=== PATIENT | female | born 1940 | race Caucasian/White ===

== ENCOUNTER 2017-07-28 07:02 | Emergency (ER) | payer MEDICARE, OTHER ==
[~2017-07-28] VITALS: Ht 170.2 cm; Wt 122.5 kg
[~2017-07-28 07:02] MED LIST: AMBIEN5 MG PO; ARICEPT10 MG PO; ARICEPT5 MG PO; ATORVASTATIN CA20 MG PO; BP MED; BRIMONIDINE TART5 M1 OU; GABAPENTIN300 MG PO; GLIPIZIDE XL10 MG PO; GLIPIZIDE5 MG PO; HYDROCHLOROTHIA25 MG PO; JANUVIA100 MG PO; K-PHOS NEUTRAL T1 EA PO; L-METHYLFOLATE15 M1 PO; LASIX80 MG PO; METOPROLOL SUC100 MG PO; MOBIC7.5 MG PO; NORCO 5-325 TA1 EACH PO; NYSTATIN15 G2 TOP; OMEPRAZOLE40 MG PO; POTASSIUM CHLO10 MEQ PO; PRILOSEC20 MG PO; PRILOSEC40 MG PO; PROZAC40 MG PO; RANITIDINE HCL150 MG PO; SERTRALINE HCL100 MG PO; SIMVASTATIN20 MG PO; SIMVASTATIN80 MG PO; SYNTHROID88 MCG PO; TRAVATAN Z5 ML OU; TRAZODONE HCL100 MG PO; TRAZODONE HCL50 MG PO; VITAMIN D250000 UNIT PO; ZIPRASIDONE HCL80 MG PO; ZOLPIDEM TARTRA10 MG PO
== END 2017-07-28 09:08 | disposition home or self-care (01) ==
LOC: ED 07:02
DX: S00.03XA Contusion of scalp, initial encounter (principal); S80.12XA Contusion of left lower leg, initial encounter; F03.90 Unspecified dementia, unspecified severity, without behavioral disturbance, psychotic disturbance, mood disturbance, and anxiety; E78.5 Hyperlipidemia, unspecified; K21.9 Gastro-esophageal reflux disease without esophagitis; I10 Essential (primary) hypertension; E11.9 Type 2 diabetes mellitus without complications; Z86.73 Personal history of transient ischemic attack (TIA), and cerebral infarction without residual deficits; Z87.891 Personal history of nicotine dependence; Z88.0 Allergy status to penicillin; Z91.030 Bee allergy status; Z88.8 Allergy status to other drugs, medicaments and biological substances; Z79.4 Long term (current) use of insulin; Z79.899 Other long term (current) drug therapy; W18.30XA Fall on same level, unspecified, initial encounter; Y92.89 Other specified places as the place of occurrence of the external cause
CPT/HCPCS: 70450; 73590; 80048; 81001; 85025; 85610; 85730; 96360; 99284; J7030

== ENCOUNTER 2017-08-01 11:26 | Emergency (ER) | payer MEDICARE, OTHER ==
[~2017-08-01] VITALS: Ht 170.2 cm; Wt 270.0 kg
[2017-08-01] MEDS ORDERED: JANUVIA100 MG PO (11:44)
[2017-08-01] MEDS ORDERED: ZESTORETIC 20-1 EAC1 PO (11:46)
[2017-08-01] MEDS ORDERED: GLUCOPHAGE XR500 MG PO (11:46)
[2017-08-01] MEDS ORDERED: LOPERAMIDE2 MG PO ×2 (11:52)
== END 2017-08-01 12:07 | disposition home or self-care (01) ==
LOC: ED 11:26
DX: S80.12XD Contusion of left lower leg, subsequent encounter (principal); E11.9 Type 2 diabetes mellitus without complications; I11.0 Hypertensive heart disease with heart failure; I50.9 Heart failure, unspecified; F03.90 Unspecified dementia, unspecified severity, without behavioral disturbance, psychotic disturbance, mood disturbance, and anxiety; K21.9 Gastro-esophageal reflux disease without esophagitis; E78.5 Hyperlipidemia, unspecified; Z88.0 Allergy status to penicillin; Z91.030 Bee allergy status; Z88.8 Allergy status to other drugs, medicaments and biological substances; Z88.4 Allergy status to anesthetic agent; Z79.899 Other long term (current) drug therapy; X58.XXXD Exposure to other specified factors, subsequent encounter
CPT/HCPCS: 99283

== ENCOUNTER 2017-08-04 13:43 | Emergency (ER) | payer MEDICARE, OTHER ==
[~2017-08-04] VITALS: Ht 170.2 cm; Wt 249.5 kg
[~2017-08-04 13:43] MED LIST changes: +GLUCOPHAGE XR500 MG PO; +LOPERAMIDE2 MG PO; +ZESTORETIC 20-1 EAC1 PO
[2017-08-05] MEDS ORDERED: ASPIRIN81 MG PO (15:30)
[2017-08-05] MEDS ORDERED: FIBER LAXATIV0.52 GM PO (15:30)
[2017-08-05] MEDS ORDERED: METHYLCOBALAMIN1 GM PO (15:35)
[2017-08-05] MEDS ORDERED: SYSTANE BALANCE10 ML OD (15:37)
[2017-08-05] MEDS ORDERED: MAALOX ADVANCE355 ML PO (15:38)
[2017-08-05] MEDS ORDERED: MAGNESIUM CITR296 ML PO (15:39)
[2017-08-05] MEDS ORDERED: NEURONTIN300 MG PO (15:40)
[2017-08-05] MEDS ORDERED: VITAMIN B COMP1 EAC1 PO (15:45)
[2017-08-05] MEDS ORDERED: [UNRECOGNIZED DRUG - OTHER] (15:47)
[2017-08-05] MEDS ORDERED: TYLENOL325 MG PO (15:48)
[2017-08-05] MEDS ORDERED: IBUPROFEN200 MG PO (15:49)
[2017-08-05] MEDS ORDERED: MILK OF MA400 MG/5 M PO (15:50)
[2017-08-05] MEDS ORDERED: REFRESH LIQUIGE15 ML OU (15:51)
== END 2017-08-04 16:52 | disposition home or self-care (01) ==
LOC: ED 13:43
DX: R13.10 Dysphagia, unspecified (principal); F03.90 Unspecified dementia, unspecified severity, without behavioral disturbance, psychotic disturbance, mood disturbance, and anxiety; I10 Essential (primary) hypertension; E11.9 Type 2 diabetes mellitus without complications; K31.9 Disease of stomach and duodenum, unspecified; E78.5 Hyperlipidemia, unspecified; Z87.891 Personal history of nicotine dependence; Z88.0 Allergy status to penicillin; Z91.030 Bee allergy status; Z88.6 Allergy status to analgesic agent; Z88.8 Allergy status to other drugs, medicaments and biological substances; Z79.899 Other long term (current) drug therapy
CPT/HCPCS: 71046; 99283

== ENCOUNTER 2017-08-04 18:15 | Inpatient (IN) | payer MEDICARE, OTHER ==
[~2017-08-04] VITALS: Ht 170.2 cm; Wt 105.7 kg
--- NOTE | 2017-08-04 23:14 | NUR ---
2255 - pt arrived to room 108 via stretcher from ED. O2 5L oxymask, R26, does not opens eyes, not responsive . tranfered with max assist and hovermat . IVF patent, F/C patent draining cloudy urine. Pt unable to answer admit questions, will review past admissions and [facility] record for information. Pt to be on droplet isolation, Influensa B+, Lesia lift, turn q2H. heel protectors placed on and pillows under both arms. Tolerated fair
--- NOTE | 2017-08-05 01:15 | NUR ---
MEDS GIVEN PER ORDER. PATIENT ASSESSMENT COMPLETE. PATIENT IS ABLE TO ANSWER QUESTIONS WITH 1-2 WORDS. PATIENT IS ORIENTED TO SELF AND CAN ANSWER QUESTIONS ABOUT WHERE SHE IS LIVING, BUT RESPONCES ARE MINIMAL. CURRENTLY ON 7L OXYMASK, O2 SAT 90%. LUNGS ARE COARSE IN UPPER LOBES AND DIMINISHED IN THE BASES. HOB ELEVATED. ABD IS ROUND, SOFT AND DOES NOT APPEAR TENDER. BOWEL SOUNDS ACTIVE. AYALA IN PLACE. OUTPUT IS CLOWDY. SKIN IS VERY DRY WITH PURPLE YOUNGBLOOD SCATTERED ACROSS THE ARMS. LARGE HEMATOMA ON LEFT LEG, MEASURED AND PICTURES IN CHART. PATIENTS BUTT IS RED BUT BLANCHABLE, ONE AREA THE SIZE OF A QUARTER IS NONBLANCHABLE. PICTURES TAKEN. PATIENT HAS BEEN TURNED TWICE SINCE ARRIVAL, WILL TURN Q2H. ALYVEN DRESSING ON COCCXY AREA. PATIENT IS NPO AT THIS TIME DUE TO CONCERNS OF ASPITATION. SUCTION READY IN THE ROOM. WILL CONTINUE TO MONITOR.
--- NOTE | 2017-08-05 01:44 | NUR ---
MD EDUARDO WAS CALLED IN REGARDS TO CALCIUM GLUCONAT ORDER BECAUSE THERE WAS ONE ORDER THAT WAS D/C. PER MD EDUARDO SHE WANTS THIS MED GIVEN. MED TO BE GIVEN BY MARIA TERESA HERNANDEZ.
--- NOTE | 2017-08-05 02:00 | NUR ---
PATIENT IS DIAPHORETIC AND HAS ORAL TEMP OF 102.8 F. MD CONTACTED. ORDERS FOR TYLENOL SUPPOSITORY RECIEVED, VERIFIED USING READ BACK METHOD.
--- NOTE | 2017-08-05 02:45 | NUR ---
tylenol suppositiory administered. patient tolerated well. repositioned patient.
--- NOTE | 2017-08-05 03:21 | NUR ---
UNABLE TO TAKE BP, PT MOVING ARM. ANSWERS TO NAME, EYES CLOSED, OXYMASK IN PLACE
--- NOTE | 2017-08-05 05:21 | NUR ---
PATIENT ARRIVED TO THE FLOOD AROUND 2330 FROM THE ER. SHE WAS HYPOXIC IN THE ER, 84% ON RA. NOW SHE IS 91% ON 7L OXYMASK. COMMUNICATION WITH PATIENT IS MINIMAL. SHE HAS GENERALIZED EDEMA. LOW URINE OUTPUT, CLOWDY. DIFFICULT TO ASSESS BP. PATIENT HAD TEMP OF 102.8 F, WHICH WAS TREATED WITH TYLENOL AND REDUCED TO 101.2F. AYALA IN PLACE. UNKNOWN LAST BM. DENIES PAIN. LARGE HEMATOMA ON LEFT ALVES. AREA AREA ON COCCYX, ALYVEN IN PLACE. TURN Q2H. HEEL PROTECTORS IN USE. PATIENT WAS RECENTLY MOBIL, BUT AT THIS TIME IS A RECOMMENDED [employer]. NPO AT THIS TIME DUE TO ASPIRATION RISK.
--- NOTE | 2017-08-05 05:57 | NUR ---
PATIENT IS FREQUENTLY DROSWEY BUT MORE ALERT THIS MORNING. ANSWERING QUESTIONS. SHE KNOWS WHERE SHE LIVES, BUT DID NOT REMEMBER BEING IN THE HOSPITAL. STATES THAT SHE FEELS "HORRIBLE" THIS MORNING. SHE IS ASKING FOR WATER. MOUTH SWABS PROVIDED. STILL UNABLE TO FIND A MANUAL BP ON THIS PATIENT. URINE OUTPUT WAS VERY LOW, 10ML FOR LAST 4 HOURS. PATIENT'S IV FLUIDS ARE INFUSING, SITE WNL. STARTED IV ABX. REPOSITIONED PATIENT.
--- NOTE | 2017-08-05 06:03 | NUR ---
MD CONTACTED ABOUT POOR OUTPUT AND ISSUES WITH OBTAINING A MANUAL BP. NO NEW ORDERS AND MD AGREED THAT IT WOULD BE OKAY FOR PATIENT TO HAVE BEDSIDE SWALLOW EVAL THIS MORNING.
--- NOTE | 2017-08-05 09:15 | NUR ---
PT AWAKE AND ANSWERING QUESTIONS. SISTERS AT BEDSIDE. ANSWERS IN SHORT SENTENCES. ROLLED TO OTHER SIDE WITH PILLOWS UNDER SIDES.
--- NOTE | 2017-08-05 11:04 | NUR ---
TOOK SEVERAL BP IN DIFFERENT LOCATIONS. MANUAL ON WRIST WAS 165. PT TOLERATED WELL.
--- NOTE | 2017-08-05 11:27 | NUR ---
PT HAS VISITOR IN ROOM FROM [facility].
--- NOTE | 2017-08-05 12:31 | NUR ---
DID BEDSIDE SWALLOW EVAL. PT PASSED EASILY. DR HUDSON ADVANCED DIET AND WILL ORDER LUNCH. GIVEN SIPS OF WATER. UO LOW, STARTED BOLUS.
--- NOTE | 2017-08-05 14:47 | NUR ---
O2 SENSOR REPLACED. PT RESTING COMFORTABLY IN BED. SPEECH HAS IMPROVED. PT STATES NORMALLY WEARS UPPER DENTURES, BUT DOES NOT HAVE THEM WITH HER. STILL NEEDS TO BE REORIENTED TO PLACE, SITUATION, DATE, AND TIME. DENIES PAIN AT THIS TIME.
[2017-08-05] MEDS ORDERED: ASPIRIN81 MG PO (15:30)
[2017-08-05] MEDS ORDERED: FIBER LAXATIV0.52 GM PO (15:30)
[2017-08-05] MEDS ORDERED: METHYLCOBALAMIN1 GM PO (15:35)
[2017-08-05] MEDS ORDERED: SYSTANE BALANCE10 ML OD (15:37)
[2017-08-05] MEDS ORDERED: MAALOX ADVANCE355 ML PO (15:38)
[2017-08-05] MEDS ORDERED: MAGNESIUM CITR296 ML PO (15:39)
[2017-08-05] MEDS ORDERED: NEURONTIN300 MG PO (15:40)
[2017-08-05] MEDS ORDERED: VITAMIN B COMP1 EAC1 PO (15:45)
[2017-08-05] MEDS ORDERED: [UNRECOGNIZED DRUG - OTHER] (15:47)
[2017-08-05] MEDS ORDERED: TYLENOL325 MG PO (15:48)
[2017-08-05] MEDS ORDERED: IBUPROFEN200 MG PO (15:49)
[2017-08-05] MEDS ORDERED: MILK OF MA400 MG/5 M PO (15:50)
[2017-08-05] MEDS ORDERED: REFRESH LIQUIGE15 ML OU (15:51)
--- NOTE | 2017-08-05 15:55 | NUR ---
MED REC COMPLETE
--- NOTE | 2017-08-05 16:47 | NUR ---
PT SISTERS HERE TO SEE PT AND POSSIBLY CHANGE HER POLST. DR DENT SAID HE WOULD ADDRESS IT TOMORROW AND THAT THEIR WISHES ARE ALREADY DOCUMENTED FOR THIS STAY. SISTERS SATISFIED WITH THAT LONG SHE IS GETTING TREATMENT AND WE WONT STOP. REITERATED THAT SHE IS GETTING AB AND TREATMENT.
--- NOTE | 2017-08-05 17:51 | NUR ---
JENNY MOREL WITNESSED INSULIN.
--- NOTE | 2017-08-05 18:59 | NUR ---
PT ARRIVED TO ROOM 128 VIA BED FROM MED/SURG. VITAL SIGNS TAKEN. URINE SENT FOR NEW LABS ORDERED BY DR. DENT.
--- NOTE | 2017-08-05 20:18 | NUR ---
IN TO ASSESS PT AT 1945. PT DENIES PAIN. DR DENT UPDATED RE: U/O, VS NOW. CLARIFIED TAMIFLU ORDER WITH PHARMACY AND DR DENT. NEW ORDERS RECEIVED.
--- NOTE | 2017-08-05 20:37 | NUR ---
ENCOURAGED PT TO COUGH AND DEEP BREATHE. SPO2 90-91% WHEN ASLEEP AND MOUTH BREATHING. INCREASED O2 TO 4L NC.
--- NOTE | 2017-08-05 21:11 | NUR ---
AYALA [facility] COMPLETED. TAMIFLU GIVEN DISSOLVED IN APPLESAUCE, SWALLOWED WELL. REPOSITIONED PT TO R SIDE WITH PILLOWS. TITRATED 02 TO 8L OXYMASK FOR LAYING ON SIDE. SPO2 86% ON 4L NC, NOW 92%. PT WITH LARGE UPPER BODY HABITUS. SLEEP APNEA AT TIMES WITH MOUTH BREATHING.
--- NOTE | 2017-08-05 22:59 | NUR ---
PT REPOSITIONED SUPINE. PULSE OX PLACED ON R TOE. O2 TITRATED TO 4L VIA OXYMASK. SPO2 97%.
--- NOTE | 2017-08-06 00:57 | NUR ---
PT REPOSITIONED WITH PILLOW UNDER R HIP. PILLOWS UNDER LE WITH HEEL PROTECTORS ON. PT DENIES PAIN. UPPER EXPIRATORY WHEEZE MORE PROMINENT.
--- NOTE | 2017-08-06 04:05 | NUR ---
DR DENT UPDATED ON PT HR, BP, U/O. IVF DECREASED TO 100ML/HR. PT GIVEN 25MG METOPROLOL PO AND 650MG TYLENOL FOR TEMP 100.6 AND GRIMACING WITH MOVEMENT. PILLOWS PLACE UNDER PT HIPS.
--- NOTE | 2017-08-06 07:33 | NUR ---
Patient's current SCr = 2.17. Renal dosing of Tamiflu = 30mg PO daily. Tamiflu 75mg given as first dose due to lack of availability of 30mg cap after hours. Patient's baseline SCr is close to 1.0. Pharmacy will monitor patient for renal function improvement and redose if necessary as indicated.
--- NOTE | 2017-08-06 08:10 | NUR ---
PT GIVEN PUDDING THICK WATER WITH A STRAW PT DID WELL WITH THIS, THEN PT BEGAN TO COUGH AND CHOKE ON THE THICKEN LIQUIDS. PT REPOSITIONED AND PLACED IN A HIGH ELISE POSITION AFTER THIS. PT HAS GOOD URINE OUTPUT THIS PAST HOUR. SIDE RAILS X 4, AND PT IS ACROSS FROM NURSES STATION.
--- NOTE | 2017-08-06 11:08 | NUR ---
PHYSICAL THERAPY HERE TO HELP ASSIT WITH PT TO GET OUT OF BED. PT IS NOT ABLE TO ASSIST WITH MOVEMENT TO GET OUT OF BED. SHE IS UNABLE TO HOLD SELF UP WHEIL SITTING AT THE EDGE OF THE BED. THREE PERSON MAX ASSISTANCE NEEDED. PT BACK TO BED AND PLACED IN CEILING LIFT SHEET. PT TO THE CHAIR WITH CEILING LIFT. PT IS UNABLE TO SIT IN CHAIR WITHOUT LEANING TO THE RIGHT SIDE. SO PT WAS PLACED IN A RECLINING POSITION. WHEN PT IS IN THIS POSITION SHE IS ABLE TO SIT IN THE CHAIR. PILLOWS UNDER RIGHT SIDE TO HELP KEEP PT IN THE CENTER OF THE CHAIR.
--- NOTE | 2017-08-06 11:12 | NUR ---
NEW IV SITE STARTED IN LEFT ARM DUE TO THE ONE ABOVE IN THE LAFT ARM IS IN THE AC AREA AND OCCULDIES AT TIMES.
--- NOTE | 2017-08-06 11:14 | NUR ---
PT REMAINS NPO AT THIS TIME, BUT WET SPONGE GIVEN TO MOISTEN MOUTH.
--- NOTE | 2017-08-06 11:14 | NUR ---
EXPLAINED TO PT THAT WE NEEDA SPUTUM SAMPLE. ASKED PT IF SHE COULD PROVIDE USE WITH ONE "NO, I SWOLLOW IT" EXPLAINED AGAIN THAT WE NEED A SAMPLE "NO"
--- NOTE | 2017-08-06 12:01 | NUR ---
PT MEDICATED WITH 650MG TYLENOL PO CRUSHED IN PUDDING. PT DID WIELL WITH THIS AND DID NOT CHOKE ON IT.
--- NOTE | 2017-08-06 12:08 | NUR ---
DR DENT NOTIFIED OF INCREASED TEMP AT THIS TIME AND NO NEW ORDERS.
--- NOTE | 2017-08-06 13:34 | NUR ---
PT BACK TO BED AT THIS TIME WITH CEILING LIFT. PT PRECIOUS-FAIR, PT PLACED ON RIGHT SIDE. PT LEFT LOWER LEG HAS STARTED TO OZZE DRAINAGE NOTED. IT HAS A VERY STRONG ODOR.
--- NOTE | 2017-08-06 14:50 | NUR ---
PT LEFT LOWER LEG IS DRAINING, AND HAS STRONG ODOR COMING FROM IT. SENT SAMPLES TO THE LAB FOR MICRO. PT ABLE TO MOVE ABOUT THE BED THIS AFTERNOON. PER DR DENT DRESSING WAS TO BE PALCED. THEREFORE ABD AND GAUZE PLACED ON THE WOUND.
--- NOTE | 2017-08-06 15:40 | NUR ---
REPORT CALLED TO BERTA MOREL ALL QUESTIONS, PT WILL BE TRANSFERED VIA BED TO ROOM 110. PT PLACED IN MASK FOR [place].
--- NOTE | 2017-08-06 15:43 | NUR ---
RECIEVED REPORT FROM JOELLE CCU RN VIA TELEPHONE.
[2017-08-06] MEDS ORDERED: VITAMIN B-125000 MCG SL (16:03)
--- NOTE | 2017-08-06 16:08 | NUR ---
PT TO FLOOR, TO ROOM 110 ACCOMPANIED BY JOHANNY, CCU RN AND JOELLE CCU RN. DENIES PAIN. REPORTS FEELING SHORT OF BREATH. RESPIRATORY RATE 22, OXYGEN SATURATION LEVEL 98% ON 2L O2 VIA NC. PT ALERT, ORIENTED TO SELF, TO FAMILY, TO YEAR, TO WHO THE PRESIDENT IS, AND THAT SHE IS IN THE HOSPITAL IN [place], BUT CALLED THE [facility], AND STATED THAT SHE DID NOT KNOW WHAT MONTH OR DAY IT IS.
--- NOTE | 2017-08-06 16:40 | NUR ---
PT TRANSFERED FROM BED TO RECLINER USING 2 PERSON ASSIST WITH SYDNEY LIFT. ASSISTED TO POSITION FOR COMFORT, IS ON 2 PILLOWS TO FLOAT, HAS A PILLOW UNDER LEGS, AND A PILLOW UNDER RIGHT ELBOW, PT LEANS SLIGHTLY TO THE RIGHT WHEN SEATED.
--- NOTE | 2017-08-06 17:40 | NUR ---
PT SITTING UP IN RECLINER. GAVE PT SCHEDULED HOME MEDICATIONS. PT DENIED PAIN, DENIED NEEDS. PROVIDED EDUCATION REGARDING CALL LIGHT USE, PT VERBALIZED UNDERSTANDING.
--- NOTE | 2017-08-06 17:48 | NUR ---
PT TO FLOOR FROM CCU THIS AFTERNOON. PT UNABLE TO MOVE SELF TO TURN WITHOUT ASSISTANCE, REQUIRES 1-2 PERSON ASSIST TO TURN IN BED, AND REQUIRES SYDNEY LIFT TRANSFER OUT OF BED TO CHAIR. PT UP IN RECLINER, AND IS TOLERATING WELL. ON 2L O2 VIA NC, LUNGS COARSE, WHEEZES, DIM IN BASES. PT SLIGHTLY DROWSY, ORIENTED TO SELF, FAMILY, YEAR, CURRENT PRESIDENT. DISORIENTED TO NAME OF PLACE SHE IS AT, KNOWS SHE IS IN HOSPITAL. ALSO DISORIENTED TO DAY AND MONTH. DRESSING TO LEFT LOWER LEG C/D/I. BLE ELEVATED ON PILLOW, AND RECLINER ELEVATED. PT NPO. PER REPORT FROM MARIA TERESA LAI, PT ASPIRATED ON NECTAR THICK LIQUIDS YESTERDAY. HAS ORDER FOR SPEECH THERAPY. AYALA CATHETER INTACT, DRAINING QUANTITY SUFFICIENT CLEAR YELLOW URINE.
--- NOTE | 2017-08-06 20:00 | NUR ---
PT UP IN CHAIR, O2 2L NC, CALM, NO REQUESTS, NO RESP DISTRESS, LEGS ELEVATED
--- NOTE | 2017-08-06 22:38 | NUR ---
PT TRANSFERRED FROM CHAIR TO BED USING SYDNEY LIFT, PROCEDURE EXPLAINED, PT TOLERATED WELL, BACK TO BED, HOB 45o, O2 2L NC, lungs with exp wheezes and dim at bases, shallow breathing present, pt unable to do dcb due to decreased cognition, karen care done, f/c care done. generalized edema nd multiple bruising in different stages of healing in arms, legs, buttocks area present, not ope, dressing left lower leg present, covered, 2+ EDEMA L LEG AND 3+ RIGHT LEG, HEEL PROTECTORS INPLACE. PT TOOK MEDS CRUSHED, MIXED WITH PUDING AND SIPS OF WATER, TOLERATED WELL, NO COUGH PRESENT AT THIS TIME.SPUTUM SAMPLE STILL NEEDED, PT HAS NO COUGH AT THIS TIME. REPORT GIVEN TO SALVATORE MOREL
--- NOTE | 2017-08-06 22:59 | NUR ---
T 101.1, TYLENOL 650MG PO GIVEN BY MARIA EUGENIA MOREL. PT REPOSITIONED. PT TURNED O2 OFF, DESATTED TO 83%, RESP 24, NO CYANOSIS PRESENT. O2 2L NC BACK ON, SATS BACK TO 93%, RESP 24.
--- NOTE | 2017-08-06 23:06 | NUR ---
PATIENT REPOSITIONED ON LEFT SIDE FOR COMFORT. PRN TYLENOL GIVEN FOR TEMPERATURE OF 100.1. PATIENT REPORTS THAT SHE NOW FEELS COMFORTABLE AND STATES "I JUST WANT SOME WATER." EDUCATED PATIENT ABOUT PLAN OF CARE AND NPO STATUS. OFFERED PATIENT MOUTH SWAB FOR COMFORT. DENIES FURTHER NEEDS. CALL LIGHT WITHIN REACH.
--- NOTE | 2017-08-07 | NUR ---
PATIENT RESTING IN BED, BREATHING IS EVEN AND UNLABORED. O2 SATURATION WAS 86% AFTER PATIENT TOOK NC OFF. AFTER PUTTING NC BACK ON, O2 SATURATION IS NOW 92%. PATIENT DENIES NEEDS. CALL LIGHT WITHIN REACH.
--- NOTE | 2017-08-07 00:43 | NUR ---
PATIENT REPOSITIONED FOR COMFORT. O2 SATURATION IS 94% ON 2L O2 VIA NC. PATIENT DENIES FURTHER NEEDS. CALL LIGHT WITHIN REACH.
--- NOTE | 2017-08-07 02:30 | NUR ---
PATIENT REPOSITIONED FOR COMFORT. ATTENDS CHANGED AND CURTIS CARE DONE AFTER PATIENT'S INCONTINENCE OF STOOL. PATIENT WAS ABLE TO GIVE MINIMAL ASSISTANCE TO RN AND TURBO OPERATOR WHILE TURNING IN BED. PATIENT DENIES PAIN, O2 SATURATION IS 94% ON 2L O2 VIA NC. DENIES NEEDS AT THIS TIME. ASSESSMENT DONE, CALL LIGHT WITHIN REACH.
--- NOTE | 2017-08-07 05:30 | NUR ---
PATIENT RESTING COMFORTABLY IN BED, BREATHING IS EVEN AND UNLABORED. O2 SATURATION IS 92% ON 2L 02 VIA NC. DENIES NEEDS, NO PAIN AT THIS TIME. CALL LIGHT WITHIN REACH.
--- NOTE | 2017-08-07 06:51 | NUR ---
PATIENT RESTING COMFORTABLY IN BED, BREATHING IS EVEN AND UNLABORED. DENIES NEEDS AT THIS TIME. CALL LIGHT WITHIN REACH.
--- NOTE | 2017-08-07 06:56 | NUR ---
PATIENT'S NIGHT WAS UNEVENTFUL. SHE HAS BEEN RESTING IN BED THROUGHOUT SHIFT. VSS, URINE OUTPUT QS WITH AYALA IN PLACE. NO COMPLAINTS OF PAIN. ALERT TO TIME AND NAME. REQUIRES 2L O2 WHILE SLEEPING, BEDSIDE PULSE OX ON. HAS EXP. WHEEZES THROUGHOUT LUNGS. INCONTINENT OF STOOL. HAS WOUND ON LEFT LEG, COVERED WITH DRESSING. REQUIRES 2PA/SYDNEY TRANSFER. NO ACUTE CHANGES.
--- NOTE | 2017-08-07 08:49 | NUR ---
Patient's SCr back near baseline at 1.17, est ClCr = 51.2ml/min. Change Tamiflu to 30mg BID, change ranitidine to 150mg BID and change enoxaparin to 40mg sub-q daily due to renal function improvement
--- NOTE | 2017-08-07 09:00 | NUR ---
ATTENDS CHANGED WITH EXTRA LARGE BROWN STOOL. CURTIS AND CATH CARE DONE.
--- NOTE | 2017-08-07 10:30 | NUR ---
PATIENT UP IN RECLINER WITH MAX ASSIST 2 PERSON WITH WALKER PER P.T.
--- NOTE | 2017-08-07 10:30 | NUR ---
RN REPORTED THAT PATIENT HAD BM CATH CARE HAS BEEN DONE. PATIENT UP TO CHAIR. NO OTHER NEEDS AT THIS TIME.
--- NOTE | 2017-08-07 12:46 | NUR ---
PATIENT PLEASANTLY CONFUSED. CALLED NAIMA DIRECTOR AT [facility] [employer] AND SPOKE WITH HER. SHE STATES PATIENT HAS BEEN ILL AND IN THE ED FREQUENTLY SINCE A FALL. SHE STATES SHE HAS ALSO BEEN TO PCP LAST WEEK. SHE STATES PATIENT NORMALLY USES WALKER BUT RECENTLY HAD TO USE WHEELCHAIR DUE TO DECLINE. WILL ACCEPT PATIENT BACK AT [facility].
--- NOTE | 2017-08-07 13:10 | NUR ---
PATIENT REMAINS UP IN THE BEDSIDE RECLINER WATCHING GAME SHOWS. SHE DOES NOT WANT TO GO BACK TO BED. SHE HAS 2 VISITORS. IV CHECKED FOR PATENCY AND RT EYE DROP GIVEN.
--- NOTE | 2017-08-07 14:43 | NUR ---
ENTERED PT'S RM, SHE WAS SITTING IN CHAIR. PT NOT TOO ALERT, SEEMED TO BE PREOCCUPIED. I INTRO. MYSELF, AND SHE SAID SHE WAS GLAD I WAS HERE. IV ALARM WAS GOING OFF. I LOOKED TO SEE IF HER ARM WAS BENT-SHE WAS HOLDING HER IV IN HER LT HAND. A SMALL AMOUNT OF BLOOD WAS STREAMING DOWN HER WRIST. I THEN IMMEDIATELY RETRIEVED MARIA TERESA GEE, AND SHE ALSO HAD MARIA TERESA JERONIMO COME WITH HER. I WILL FOLLOW NEEDED
--- NOTE | 2017-08-07 14:52 | NUR ---
PATIENT SITTING UP IN CHAIR. STUDENT NURSE IN ROOM TO TAKE VITAL SIGNS. RN REPORTS ASSISTING WITH ALL ADL'S.
--- NOTE | 2017-08-07 15:22 | NUR ---
PATIENT IS READY TO GO BACK TO BED. AWAITING ASSISTNCE FROM PT TO GET PATIENT BACK INTO BED.
--- NOTE | 2017-08-07 15:39 | NUR ---
PATIENT BACK IN BED NOW SUPINE AND IS COMFORTABLE. PATIENT ASKED FOR ME TO ORDER HER DINNER SOFT TRAY WITH MILK.
--- NOTE | 2017-08-07 17:20 | NUR ---
PATIENT'S AYALA WAS DC'D PER 'S ORDER. 135MLS EMPTIED FROM AYALA. PATIENT ATE 20% OF HER SOFT DINNER.
--- NOTE | 2017-08-07 17:35 | NUR ---
HERE TO ASSESS LEFT LOWER LEG WOUND. DR. YU UNABLE TO REACH POWER OF MEDIA PRODUCTION MANAGER FOR THE PATIENT WHICH IS THE SISTER WHO IS SUPPOSED TO BE BACK MONDAY. WOUND REDRESSED WITH NON-ADHERENT DRESSING, ARNOLDO, AND COBAN.
--- NOTE | 2017-08-07 18:52 | NUR ---
PATIENT HAS BEEN TURNED Q2/HRS WHILE IN BED, BUT SHE SPENT A FAIR AMOUNT OF THE DAY SITTING UP IN THE RECLINER WATCHING GAME SHOWS. ALL IV FLUIDS WERE DC'D AND PATIENT PLACED ON A SOFT DIET. SHE PULLED HER FOREARM IV OUT TODAY, BUT STILL HAS A 22g IV IN HER LAC WHICH IS VERY POSITIONAL, BUT FLUSHES. AYALA WAS DC'D, ATTENDS IN PLACE. PATIENT ATE ABOUT 20% OF DINNER, BUT HAD A COUGHING SPELL AFTER SHE FINISHED EATING, BUT IS NOT COUGHING NOW SATS REMAIN THE SAME THEY HAVE THROUGHOUT THE DAY. DR. YU CONSULTED ON THE LEFT LEG WOUND, BUT PATIENT IS COGNATIVELY IMPARED AND COULD NOT CONSENT FOR HIM TO DO ANYTHING WITH THE LEG AND WAS UNABLE TO REACH THE A BY PHONE. PATIENT IS STILL WHEEZY AND COURSE IN HER LUNG SOUNDS.
--- NOTE | 2017-08-07 21:41 | NUR ---
PT LAYING IN BED, DROWSY, BUT AROUSABLE TO RN VOICE. PT FOLLOWS DIRECTIONS AND DOES ANSWER YES AND NO QUESTIONS APPROPRIATLY. 2L VIA NC. DENIES PAIN, BUT HAS BEEN MOANING AND SEEMS RESTLESS, GAVE TYLENOL PO FOR ACHES AND PAINS. PT HAS BEEN COUGHING BUT NOTHING PRODUCTIVE YET. PT HAS FRESH WATER AT BEDSIDE AND CALL LIGHT. DENIES FURTHER NEEDS. DROPLET PROCAUTIONS UTILIZED.
--- NOTE | 2017-08-07 23:36 | NUR ---
PT APPEARS TO BE SLEEPING, EYES CLOSED. O2 SAT 97% ON 2L VIA NC, HR 71.
--- NOTE | 2017-08-08 00:23 | NUR ---
RN KIANNA AND I CHANGED PATIENT'S SOILED ATTENDS WITH BOWEL MOVEMENT AND VOIDINGS.
--- NOTE | 2017-08-08 00:35 | NUR ---
pt incontinent of urine and bm. changed attends. pt tolerated well. no further needs. call light in reach.
--- NOTE | 2017-08-08 02:52 | NUR ---
pt appears to be sleeping. eyes are closed, rr wnl and unlabored. o2 sat 97% on 2l via nc. hr 71.
--- NOTE | 2017-08-08 04:54 | NUR ---
PT SLEPT MAJORITY OF SHIFT. DROPLET PRECAUTIONS. INCONTINENT OF URINE AND BM OVERNIGHT. TURN Q2. SALINE LOCKED. SOFT DIET. PT ANSWERS SIMPLE QUESTIONS APPROPRIATLY. OCCASIONAL NON PRODUCTIVE COUGH. SATING IN THE UPPER 90%'S ON 2L VIA NC, BUT DESATS INTO 80%'S WITH OXYGEN OFF. TYLENOL FOR ACHES AND PAINS GIVEN BEGINNING OF SHIFT.
--- NOTE | 2017-08-08 07:26 | NUR ---
REPORT RECEIVED FROM MARIA TERESA HUTCHISON. PT DROWSY BUT AROUSES EASILY. PT DENIES NEEDS AND APPEARS COMFORTABLE IN BED.
--- NOTE | 2017-08-08 09:10 | NUR ---
AM MEDS ADMINISTERED. PT UP TO CHAIR AND THEN TO BEDSIDE COMMODE WITH 2PERSON ASSIST AND FWW. LARGE BM. PT BACK TO CHAIR. AWAKE AND ALERT. ANSWERS QUESTIONS APPROPRIATELY. BREAKFAST ORDERED. CALL LIGHT IN REACH.
--- NOTE | 2017-08-08 10:02 | NUR ---
PT UP WITH PHYSICAL THERAPY. STOOD WITH FWW. TOLERATED WELL. O2 SAT 95% AFTER PT BACK TO CHAIR. DENIES OTHER NEEDS AT THIS TIME.
--- NOTE | 2017-08-08 10:06 | CONS ---
[facility] [address] [place], [place] [address] Signed DATE OF CONSULTATION: 08/07/2017 REFERRING PHYSICIAN: Jaren Johnson MD CHIEF COMPLAINT: Hematoma, left lower extremity. HISTORY OF PRESENT ILLNESS: Veda is a 77-year-old significantly debilitated and demented lady from our [facility]. She has actually come to the emergency room 3 times in the last week or so. She tested positive for flu and probably has pneumonia. She has had hypoxemia, but also has hematoma on her left lower extremity midway between the calf and the ankle. It is fairly large, 5 to 6 cm. It has turned black at this point and the overlying skin is pretty leathery and just a tiny bit of leakage on one edge. There was concern whether or not it could be infected and whether it needed drain. So I was asked to see her as a general surgeon on-call. However, she does have a POLST form from 2014, which she signed making herself DNR/DNI and comfort care only. Unfortunately, she is really not able to give us any significant input, so we have been trying to reach her sister, Faye, who has the [id number]. PAST MEDICAL HISTORY: Gastroesophageal reflux disease, dementia, hypertension, hyperlipidemia, diabetes, congestive heart failure, stroke in 2006, and obesity. PAST SURGICAL HISTORY: Includes a panniculectomy in 2011. SOCIAL HISTORY: She quit smoking. She does not drink. She is a resident at [facility]. She is a DNR/DNI with comfort care only. She generally can ambulate some with a walker. Her sister is Faye Esteban, who is [id number] at [phone] and [phone]. Dr. Robert Maddox is her primary care provider. FAMILY HISTORY: There is no family history reviewed today. REVIEW OF SYSTEMS: Veda is not able to answer any significant questions. ALLERGIES: Penicillin, lidocaine, metformin, procaine, wasps, and pioglitazone. Electronically Signed By: GIGI YU MD 08/08/17 1006 PATIENT NAME: VEDA GUDINO CONSULTATION DATE OF : 42 PHYSICIAN: GIGI YU MD REPORT #: [id number] REPORT IS CONFIDENTIAL AND NOT TO BE RELEASED WITHOUT AUTHORIZATION [facility] [address] [place], [place] [address] Signed MEDICATIONS: Metoprolol, vitamin D, levothyroxine, brimonidine, gabapentin, folate, nystatin, atorvastatin, Zantac, sertraline, trazodone, ziprasidone, travoprost, Januvia, Zestoretic, metformin, and loperamide. PHYSICAL EXAMINATION: VITAL SIGNS: Her blood pressure is 116/62, heart rate 82, respiratory rate is 14, temperature is 97.7. She is 96% on room air. GENERAL: She is 5 feet 7 inches at 105 kg. Veda is a 77-year-old female, lying supine in her hospital bed. She is obviously very debilitated. She is blind in left eye. She does turn her head to voice with a nurse helping me with fully gowned. We unwrapped her leg and she has a hematoma probably 5 or 6 cm in diameter on the medial side of her left leg midway between the calf and the ankle, and of course she has the surrounding ecchymosis. The overlying skin is quite leathery, but there are no local signs or symptoms of infection. I actually pushed on it fairly firmly and it bothered her a bit, but I never could get it to pop open and get any of the fluid to drain. LABORATORY DATA: Her white blood cell count is 9.6, hemoglobin is 8.4, neutrophils 79, BUN 40, creatinine 1.17. She had a leg culture done apparently yesterday and of course there is no growth to date. ASSESSMENT AND PLAN: Veda is a 77-year-old female, who presents as above with this hematoma, now probably more than a week old. She is a DNR/DNI with comfort care only. Nevertheless, she has been receiving treatment here in the hospital with input from her sister, Faye, who is her power of document review attorney. I have called both phone numbers, we have not been able to reach her. It looks like she lives an hour away in the [place] area. Nevertheless, it is not emergency, so we will do our best to talk to her either later at night or tomorrow and get her input with respect to this hematoma. MD PATSY Martinez/GONZÁLEZL /[id number] Electronically Signed By: GIGI YU MD 08/08/17 1006 PATIENT NAME: VEDA GUDINO CONSULTATION DATE OF : 42 PHYSICIAN: GIGI YU MD REPORT #: [id number] REPORT IS CONFIDENTIAL AND NOT TO BE RELEASED WITHOUT AUTHORIZATION [facility] [address] [place] [address] Rodolfo MuñozSelena [place] [address] Signed cc: Robert Maddox DO Electronically Signed By: GIGI YU MD 08/08/17 1006 PATIENT NAME: VEDA GUDINO CONSULTATION DATE OF : 42 PHYSICIAN: GIGI YU MD REPORT #: [id number] REPORT IS CONFIDENTIAL AND NOT TO BE RELEASED WITHOUT AUTHORIZATION
--- NOTE | 2017-08-08 11:15 | NUR ---
IV INSERTED INTO RIGHT FOREARM. 22G PT TOLERATED WELL. DR DENT IN TO SEE PT. ORDER IN TO START FLUIDS AT 2100.
--- NOTE | 2017-08-08 11:41 | NUR ---
PT UP IN CHAIR ALL DAY. EATING LUNCH. AWAKE AND ALERT. AM INSULIN WITNESSED BY MARIA TERESA ALVARADO AND MARIA TERESA ANG. AFTERNOON INSULING WITNESSED BY MARIA TERESA ANG AND MARIA TERESA BREWER. PT DENIES OTHER NEEDS AT THIS TIME. CALL LIGHT IN REACH.
--- NOTE | 2017-08-08 12:45 | NUR ---
PT UP IN CHAIR. SAT. IN HIGH 90'S BUT WAS WHEEZING MORE THAN THIS MORNING. STATES NO SOB OR DIFFICULTY BREATHING. REMINDED TO USE IS AND COUGH.
--- NOTE | 2017-08-08 13:36 | NUR ---
PT UP TO BEDSIDE COMMODE WITH 2 PERSON AND FWW. PT BACK TO BED AND DENIES PAIN OR OTHER NEEDS. PT IS ORIENTED X4 BUT HAS BEEN SHOWING SIGNS OF CONFUSION, MAKING RANDOM COMMENTS/ASKING QUESTIONS.
--- NOTE | 2017-08-08 14:19 | NUR ---
PT HAS OCCASSIONAL AUDIBLE EXPRIATORY WHEEZE. IMPROVED FROM THIS MORNING. PT HAS NON-PRODUCTIVE HACKING COUGH. DEMONSTRATED HOW TO USE IS. REMINDED TO BREATHE DEEPLY. O2 SAT REMAINED STEADY AT 95%. PT IS SITTING UP IN BED, DROWSY, BUT EASILY AROUSED. DENIES PAIN. DENIES OTHER NEEDS AT THIS TIME. CALL LIGHT WITHIN REACH.
--- NOTE | 2017-08-08 14:30 | NUR ---
STUDENT NURSE IN PATIENT'S ROOM TO TAKE VITALS AND I&O'S. WILL SHOWER PATIENT LATER THIS AFTERNOON.
--- NOTE | 2017-08-08 16:00 | NUR ---
PATIENT UP TO BSC WITH 2 PERSON ASSIST WITH GATE BELT FWW. ASSISTED PATIENT WITH SHOWER. ORAL CARE DONE. RN AND STUDENT NURSE IN TO CHANGE PATIENTS DRESSING ON COCCYX. PATIENT TO CHAIR WITH LEGS ELEVATED. CALL BUTTON IN REACH. WARM BLANKET GIVEN. NO OTHER NEEDS AT THIS TIME.
--- NOTE | 2017-08-08 16:45 | NUR ---
PT IN SHOWER WITH FELICIA BETANCUR AND FELICIA BOX
--- NOTE | 2017-08-08 17:37 | NUR ---
CARE CONFERENCE OVER THE PHONE PT SISTER IS UNABLE TO COME TO HOSPITAL TODAY OR TOMORROW. WE CONVERSED ABOUT THE FACT THAT DR YU IS PLANNING ON DOING SURGERY TO I AND D HER LEG. SISTER STATED THAT SHE SOUNDED BETTER ON MONDAY THAN SHE HAD FOR A WHILE. SISTER STATES THAT WHEN SHE IS READY FOR DC SHE WOULD LIKE HER TO GO TO [facility] THIS IS BETTER FOR FAMILY TO BE ABLE TO VISIT HER. STATES SHE WILL BE COMING UP TO SEE PT ON MONDAY. ASKED IF SHE HAD ANY QUESTIONS OR CONCERNS, ISSUES OR NEEDS, SHE STATED NO SHE WAS FINE. STATED IF SHE DID COME UP WITH QUESTIONS OR ANYTHING SHE WOULD CALL.
--- NOTE | 2017-08-08 17:41 | NUR ---
PT DOING WELL. UP IN CHAIR MOST OF DAY. NEW IV 22G IN RIGHT FOREARM. LR AT 100ML/HR, STARTED BEFORE 2100 DUE TO MINIMAL URINE OUTPUT/LOW ORAL INTAKE PER DR DENT'S ORDER. PT UP WITH PHYSCIAL THERAPY X1. TRANSFERS WITH 2 PERSON AND FWW. EXPIRATORY WHEEZE AND OCCASSIONAL NON PRODUCTIVE COUGH THROUGHOUT THE DAY. REMINDED TO USE IS. RT IN X1, TITRATED PT DOWN TO 1L O2. TOLERATING WELL. PT SHOWERED TODAY. ALYVN ON COCCYX CHANGED. PT IS ALERT AND ORIENTED WITH SOME BASELINE CONFUSION PRESENT.
--- NOTE | 2017-08-08 20:55 | NUR ---
PT SITTING UP IN CHAIR. PLEASENT DEMEANOR. APPEARS MORE WELL THAN LAST SHIFT. PT MORE TALKATIVE AND STATES "I FEEL MUCH BETTER, THE PAIN IN MY LEG IS ALMOST GONE." GAVE TYLENOL FOR GENERALIZED BODY ACHES. ASSISTED PT UP TO BSC TO VOID AND THEN BACK IN BED. 2 PERSON ASSIST WITH FWW, PT TOLERATED WELL. GAVE FRESH ICE WATER. PT HAS NO FURTHER NEEDS AT THIS TIME. CALL LIGHT IN REACH.
--- NOTE | 2017-08-08 23:53 | NUR ---
PT APPEARS ASLEEP. EYES ARE CLOSED. RR WNL AND UNLABORED. HR 69. O2 SAT 96% ON 1L VIA NC.
--- NOTE | 2017-08-09 02:36 | NUR ---
PT APPEARS ASLEEP. EYES CLOSED. LIGHTS OFF, TV ON IN ROOM.
--- NOTE | 2017-08-09 05:01 | NUR ---
pt appears to be sleeping. rr wnl and unlabored. o2 sat 94% on 1l via nc. hr 76. lights off in room.
--- NOTE | 2017-08-09 05:12 | NUR ---
PT HAD UNEVENTFUL NIGHT. SLEPT MAJORITY OF SHIFT. TOLERATED HEAVY 2 PERSON ASSIST WITH FWW FROM CHAIR, TO BSC, THEN TO BED WELL. PT ALERT AND ORIENTED X4. PLEASENT DEMEANOR. TYLENOL GIVEN X1 BEGINNING OF SHIFT FOR GENERAL BODY ACHES. DR YU TO PERFORM I&D ON LEFT ALVES TODAY.
--- NOTE | 2017-08-09 06:56 | NUR ---
PT INCONTINENT OF URINE AND SOFT FORMED STOOL. ASSISTED PT UP TO BSC, WHERE SHE HAD ANOTHER MED SOFT FORMED STOOL. THEN UP TO CHAIR. 2 PERSON ASSIST WITH FWW. ATTENDS IN PLACE. FLUIDS INFUSING WNL. CALL LIGHT IN REACH.
--- NOTE | 2017-08-09 07:47 | NUR ---
RECIEVED REPORT FROM CERTIFIED GREEN BUILDING ENGINEER NURSE. PATIENT RESTING UP IN CHAIR. IVF INFUSING W/O DIFFICULTY IN R HAND. ASSISTED PATIENT UP TO BSC WITH ASSIST. PERICARE PERFORMED. APPLIED NEW BRIEF. PATIENT DENIES FURTHER NEEDS. CALL LIGHT IN REACH.
--- NOTE | 2017-08-09 08:00 | NUR ---
PATIENT WIPED DOWN WITH ANGEL WIPES. LUNGS DIMINISHED, PATIENT HAS DRY, NON-PRODUCTIVE COUGH, NO SOB AT REST, 1L O2 VIA NASAL CANNULA IN PLACE, CONT PULSE OX READING 96%. WILL ATTEMPT TO TITRATE AFTER PROCEDURE THIS MORNING. HR REGULAR. ACTIVE BS. SMALL SOFT BM THIS MORNING. NON-PITTING EDEMA NOTED IN BILAT FEET/ANKLES. PALPABLE PEDAL PULSES. NO C/O PAIN. BS OBTAINED. UNCOVERED DRESSING ON LLE. LARGE HEMATOMA NOTED, BLACK IN COLOR, DRAINING SMALL AMOUNT OF SEROUS FLUID. WIPED AROUND AREA WITH ANGEL, COVERED WITH NON-ADHERENT DRESSING. PATIENT DENIES FURTHER NEEDS.
--- NOTE | 2017-08-09 08:57 | NUR ---
transferred patient to bed with assist. patient taken off the floor via bed for surgical procedure.
--- NOTE | 2017-08-09 10:30 | NUR ---
PATIENT OFF UNIT.
--- NOTE | 2017-08-09 10:54 | NUR ---
08/09/17 1054 Lynda Morales 1034 PT ARRIVED IN PACU SLEEPY WITH NO C/O'S. PT WEARING MASK AND ON 3L OXYGEN VIA N/C. ANESTHESIA AT BEDSIDE.
--- NOTE | 2017-08-09 11:15 | NUR ---
PATIENT BACK TO MS UNIT VIA HOSPITAL BED BY RN. PATIENT DROWSY BUT EASILY [place]. PATIENT SLEEPING AT THIS TIME ONE 1L O2 VIA NASAL CANNULA, SAT AT 92%. RESPIRATIONS ARE EVEN AND UNLABORED. REMOVED STRAIGHT TUBING AND HOOKED PATIENT UP TO INFUSION PUMP. IVF INFUSING AT 50CC/HOUR. DRESSING TO LLE C/D/I. L FOOT IS WARM, PEDAL PULSE PALPABLE. CALL LIGHT IN REACH.
--- NOTE | 2017-08-09 13:04 | NUR ---
OBTAINED BLOOD SUGAR. ORDERED LUNCH. PATIENT INCONT OF URINE. ASSISTED PATIENT TO BSC. TRANSFERRED BACK TO CHAIR. PATIENT DENIES PAIN. CALL LIGHT IN REACH.
--- NOTE | 2017-08-09 13:30 | NUR ---
patient was only able to void 50cc up to bsc. bladder scanned patient to find 912cc in bladder. notified dr. hernandez. obtained order to straight catheterize patient. obtained 750cc of urine with the straight cath. transferred patient to chair. meal tray served. patient denies further needs. call light in reach.
[2017-08-09] MEDS ORDERED: CLINDAMYCIN HC300 MG PO (13:31)
[2017-08-09] MEDS ORDERED: CEFPODOXIME PR200 MG PO (13:31)
[2017-08-09] MEDS ORDERED: ZIPRASIDONE HCL80 MG PO (13:40)
--- NOTE | 2017-08-09 14:50 | NUR ---
PATIENT RESTING UP IN CHAIR. TOILETING OFFERED. EXPIRATORY WHEEZES HEARD IN UPPER LUNGS AND RLL, DIMINISHED CRACKLES HEARD IN LLL. I HAVE NO OBSERVED PATIENT COUGHING THIS AFTERNOON. PATIENT NOT SOB. CONT. PULSE OX IN PLACE. PATIENT'S O2 AT 93% AFTER TITRATING DOWN TO 0.5L/MIN. HR REGULAR. BS ACTIVE. NON-PITTING EDEMA BLE. PATIENT DENIES PAIN. ELEVATED LEGS. PLACED PILLOW UNDER LLE. DRESSING TO LLE C/D/I. PATIENT DENIES NEEDS, CALL LIGHT IN REACH.
--- NOTE | 2017-08-09 15:38 | NUR ---
PATIENT SLEEPING UP IN CHAIR. NASAL CANNULA IN PLACE AT 0.5L/MIN. O2 AT 91%. CONT PULSE OX IN PLACE. BLE STILL ELEVATED ON PILLOWS IN CHAIR. IVF INFUSING W/O DIFFICULTY. CALL LIGHT IN REACH.
--- NOTE | 2017-08-09 15:51 | NUR ---
FAXED CHART NOTES TO [facility] INCLUDING FACESHEET, ER NOTES, H AND P, CONSULT, PROG NOTES, OP NOTE, AND PT EVAL AND NOTES. ALSO CALLED AND TALKED WITH NANCY AT [facility], SHE SAID SHE WOULD LOOK AT THEM AND LET ME KNOW IF THEY CAN TAKE THE PT.
--- NOTE | 2017-08-09 16:32 | NUR ---
removed o2, patient at 94% ra. assisted patient to bsc with physical therapy. patient had a semi-liquid soft bm, but no urine. attends dry. placed patient on the bed and bladder scanned to find 422cc of urine in bladder. bs obtained. call light in reach.
--- NOTE | 2017-08-09 16:40 | NUR ---
NOTIFIED ABOUT NO URINE OUTPUT, OBTAINED ORDER TO PLACE AN INDWELLING AYALA CATHETER.
--- NOTE | 2017-08-09 16:55 | NUR ---
AYALA CATHETER INSERTED. URINE IS CLEAR YELLOW.
--- NOTE | 2017-08-09 17:14 | NUR ---
CALLED AND LEFT A MESSAGE FOR PT SISTER SALOMÓN TO CALL ME BACK REGARDING PLACEMENT OF THE PT. [facility] STATES THEY HAVE NO BEDS RIGHT NOW BUT ARE GOING TO BE CHECKING ON DC'S FOR TOMORROW. PT MAY OR MAY NOT BE ABLE TO GO TO [facility]. MAY HAVE TO GO TO ANOTHER FACILITY.
--- NOTE | 2017-08-09 17:38 | NUR ---
PT SISTER CALLED, STATED THAT IF [facility] HAS NO BED SHE WOULD LIKE ME TO TRY [facility], OR [facility] [place] AND WOULD LIKE ME TO CALL HER WITH THE DETAILS SHE CAN'T BE HERE AGAIN TOMORROW, BUT STATES MAYBE MONDAY.
--- NOTE | 2017-08-09 17:52 | NUR ---
HELPED NURSE GET HER UP TO HER CHAIR. HER DINNER WAS COLD SO WE ORDERED HER MORE FOOD. NOW SHE IS WATCHING TV.
--- NOTE | 2017-08-09 18:22 | NUR ---
PATIENT HAVING DINNER UP IN CHAIR. PATIENT ON RA, O2 SAT FROM 90-93%. CALL LIGHT IN REACH.
--- NOTE | 2017-08-09 22:01 | NUR ---
PT SITTING UP IN CHAIR. NO DISTRESS AT THIS TIME. RT IN ROOM WORKING WITH INCENTIVE SPIROMETER, PT FOLLOWING DIRECTIONS WELL. ALERT AND ORIENTED X4. AYALA DRAINING FREELY. ASSISTED PT BACK TO BED. NEW SHEETS AND NEW WHITE CHUX. PT'S O2 SAT 88-92%, PUT PT BACK ON 1L VIA NC FOR THE NIGHT. GAVE FRESH ICE WATER. PT HAS NO FURTHER NEEDS. CALL LIGHT IN REACH.
--- NOTE | 2017-08-09 23:59 | NUR ---
pt appears asleep. eyes are closed, rr even and unlabored. o2 sat 92% and hr 72. lights off, tv on in room.
--- NOTE | 2017-08-10 02:17 | NUR ---
PT REMAINS SLEEPING. RR EVEN AND UNLABORED. 91% ON 1L VIA NC. HR 69.
--- NOTE | 2017-08-10 04:13 | NUR ---
Pt in bed, resting, no c/o discomfort. Continues on droplet isolation
--- NOTE | 2017-08-10 05:28 | NUR ---
PT HAD UNEVENTFUL NIGHT. SLEPT WELL OVERNIGHT. 2 PERSON ASSIST WITH FWW TO PIVOT TRANSFER. ALERT AND ORIENTED X4, BUT FORGETFUL AT TIMES. DRESSING TO LLE IS CLEAN DRY AND INTACT, ORDERS TO CHANGE DRESSING BID. TOLERATED RA WELL YESTERDAY PER DAYSHIFT, BUT REQUIRED 1L VIA NC TO MAINTAIN WNL SATS WHILE SLEEPING. PT IS PLEASENT AND HAS BEEN CALLING APPROPRIATLY. AYALA CATHETER PLACED YESTERDAY, DRAINING YELLOW URINE FREELY.
--- NOTE | 2017-08-10 06:27 | NUR ---
CHANGED DRESSING EXACTLY PER DR MADSEN ORDERS. OLD PACKING AND ABD DRESSING WAS WELL SATURATED WITH SEROSANGENOUS DRAINAGE. WOUND BED PINK. PT TOLERATED WELL. STATES "I DONT HAVE ANY PAIN IN THERE ANYMORE, JUST A LITTLE BIT WHEN YOU POKE AT IT."
--- NOTE | 2017-08-10 07:00 | NUR ---
REPORT RECEIVED FROM KIANNA AT THIS TIME, PATIENT RESTING IN BED WITH HOB ELEVATED.
--- NOTE | 2017-08-10 08:00 | NUR ---
psychiatric nursing assistant and nursing staff development coordinator in the room, glucose check done at this time.
--- NOTE | 2017-08-10 10:07 | NUR ---
PHYSICAL THERAPY IN THE ROOM WORKING WITH THE PATIENT, SHE REMAINS A 2 PERSON ASSIST WITH HER WALKER BUT WALKED FURTHER TODAY.
--- NOTE | 2017-08-10 10:45 | NUR ---
SHOWER DONE BY UPPER AND BOTTOM LACER HAND AND CIRCUIT BOARD DRAFTER AT THIS TIME
--- NOTE | 2017-08-10 11:36 | NUR ---
BLOOD GLUCOSE CHECKED AT THIS TIME
--- NOTE | 2017-08-10 11:39 | NUR ---
THE STUDENT AND I GOT HER UP TO HER CHAIR THIS MORNING FOR BREAKFAST.
--- NOTE | 2017-08-10 11:42 | NUR ---
THE STUDENT AND I GAVE PATIENT A SHOWER USED A SHOWER CHAIR ALSO WRAPPED HER LEG IN GARBAGE BAG TO PREVENT FROM GETTING WET.
--- NOTE | 2017-08-10 12:30 | NUR ---
RECIEVED REPORT FROM MAGDALENO MOREL. PATIENT RESTING UP IN CHAIR. ATE 100% OF HER LUNCH. MEAL TRAY REMOVED. TRANSFERRED PATIENT TO BED. DR. DENT IN TO SEE PATIENT. DENIES NEEDS. CALL LIGHT IN REACH.
--- NOTE | 2017-08-13 08:11 | OR ---
[facility] [address], [place] [address] Signed DATE OF OPERATION: 08/09/2017 SURGEON: Gigi Yu MD PREOPERATIVE DIAGNOSIS: Left pretibial hematoma with black eschar (3-4 cm). POSTOPERATIVE DIAGNOSIS: Left pretibial hematoma with black eschar (3-4 cm). PROCEDURE: Incision and drainage with sharp debridement of left pretibial hematoma and black eschar. ESTIMATED BLOOD LOSS: None. INDICATIONS: Veda is a 77-year-old significantly disabled lady, who came into the hospital with what looks like flu and pneumonia on top of that hypoxemia. She is a DNR/DNI. Her sister, Faye Esteban is her power of united states attorney. Veda also uses a walker and states she bumped her left limon on the walker. She has quite ecchymoses with a hematoma in the center and the overlying skin is black eschar about 3-4 cm in diameter. I have been asked to see her as a general surgeon on-call to debride that skin and eschar. I had spoke with Veda and her sister, Faye and everyone was in agreement to go ahead and excise that area. I explained it would only take a few minutes in the operating room and we would simply use normal saline gauze packing with some Kerlix to address that and that will heal up over several months. Veda and her sister expressed understanding and wished to proceed. PROCEDURE NOTE: Veda was taken down to our operating room. We kept her in her hospital bed. We placed multiple chucks underneath her left leg and we prepped and draped her left leg in the usual sterile fashion. She was given some propofol per nurse industrial refrigeration mechanic and I used the cutting mode on the cautery just to cut around the circumference of the black eschar back to healthy skin. Of course, she has quite a bit of surrounding ecchymoses. We unroofed the black eschar and evacuated the black jelly-like hematoma. Warm antibiotic saline solution was used to irrigate the wound along with some gauze to help clean out the wound. After this, saline soaked gauze was used to pack the wound. This was covered with an ABD and a 4-inch Kerlix roll. Veda was then taken in the recovery room in stable condition. Electronically Signed By: GIGI YU MD 08/13/1711 PATIENT NAME: VEDA GUDINO OPERATIVE REPORT DATE OF : 42 PHYSICIAN: GIGI YU MD REPORT #: [id number] REPORT IS CONFIDENTIAL AND NOT TO BE RELEASED WITHOUT AUTHORIZATION [facility] [address] [place] [id number] Signed MD PATSY Martinez/MARCELA /[id number] cc: DO Gigi Lerma MD Electronically Signed By: GIGI YU MD 08/13/17810 PATIENT NAME: VEDA GUDINO OPERATIVE REPORT DATE OF : 42 PHYSICIAN: GIGI YU MD REPORT #: [id number] REPORT IS CONFIDENTIAL AND NOT TO BE RELEASED WITHOUT AUTHORIZATION
== END 2017-08-10 13:10 | disposition swing bed (61) | DRG 177 ==
LOC: ED 18:15 → MS 22:34 → CCU 08-05 18:24 → MS 08-06 15:55
PROVIDERS: Colon & Rectal Surgery; ADMIT Internal Medicine
PROC: 0HBLXZZ Excision of Left Lower Leg Skin, External Approach (ICD-10-PCS; principal; 2017-08-09 10:45)
DX: J69.0 Pneumonitis due to inhalation of food and vomit (principal); J96.01 Acute respiratory failure with hypoxia; N17.9 Acute kidney failure, unspecified; F03.91 Unspecified dementia, unspecified severity, with behavioral disturbance; F05 Delirium due to known physiological condition; J11.00 Influenza due to unidentified influenza virus with unspecified type of pneumonia; K21.9 Gastro-esophageal reflux disease without esophagitis; E78.5 Hyperlipidemia, unspecified; E03.9 Hypothyroidism, unspecified; S80.12XD Contusion of left lower leg, subsequent encounter; W19.XXXD Unspecified fall, subsequent encounter; Z66 Do not resuscitate; I11.0 Hypertensive heart disease with heart failure; I50.9 Heart failure, unspecified; Z51.5 Encounter for palliative care; E66.9 Obesity, unspecified; Z86.73 Personal history of transient ischemic attack (TIA), and cerebral infarction without residual deficits; E11.9 Type 2 diabetes mellitus without complications; Z87.891 Personal history of nicotine dependence; Z79.84 Long term (current) use of oral hypoglycemic drugs
CPT/HCPCS: 00400; 36415; 71045; 80048; 80053; 80069; 81001; 82570; 83605; 84300; 84540; 85025; 87040; 87070; 87075; 87076; 87077; 87088; 87185; 87186; 87205; 87502; 92610; 94640; 94667; 94668; 94762; 97110; 97116; 97163; 97530; J0610; J0696; J1650; J2250; J2704; J7030

== ENCOUNTER 2017-08-10 13:12 | Inpatient (IN) | payer MEDICARE, OTHER ==
[~2017-08-10] VITALS: Ht 170.2 cm; Wt 105.7 kg
[~2017-08-10 13:12] MED LIST changes: +ASPIRIN81 MG PO; +CEFPODOXIME PR200 MG PO; +CLINDAMYCIN HC300 MG PO; +FIBER LAXATIV0.52 GM PO; +IBUPROFEN200 MG PO; +MAALOX ADVANCE355 ML PO; +MAGNESIUM CITR296 ML PO; +METHYLCOBALAMIN1 GM PO; +MILK OF MA400 MG/5 M PO; +NEURONTIN300 MG PO; +REFRESH LIQUIGE15 ML OU; +SYSTANE BALANCE10 ML OD; +TYLENOL325 MG PO; +VITAMIN B COMP1 EAC1 PO; +VITAMIN B-125000 MCG SL; +[UNRECOGNIZED DRUG - OTHER]
--- NOTE | 2017-08-10 14:15 | NUR ---
REMOVED OLD DRESSING AND PACKING TO LLE. MODERATE AMOUNT OF SEROUS DRAINAGE ON ABD PAD. WOUND BED APPEARS BEEFY RED, LESS THAN 1CM TUNNELING NOTED ON PROXIMAL SIDE OF WOUND. WOUND IS 6CM X 4.75CM. WASHED WOUND BED WITH WARM SOAPY WATER. RINSED WITH SALINE. WET->MOIST KERLEX GUAZE USED TO PACK. RE-COVERED WITH ABD PAD. WRAPPED WITH 4CM XENIA BANDAGE. PATIENT SLEPT THROUGH PROCEDURE. CALL LIGHT IN REACH.
--- NOTE | 2017-08-10 14:21 | NUR ---
PATIENT RESTING WITH EYES CLOSED IN BED. BREATHING EVEN AND UNLABORED. CALL LIGHT IN REACH.
--- NOTE | 2017-08-10 15:37 | NUR ---
PATIENT SLEEPING. RENEE IN TO VISIT. BREATHING EVEN AND UNLABORED. CALL LIGHT IN REACH.
--- NOTE | 2017-08-10 16:26 | NUR ---
TALKED WITH PT SISTER-SALOMÓN WE DISCUSSED PT BEING IN A TRANSITIONAL BED, EXPLAINED THAT AND WHAT IS EXPECTED OF THE PT DURING THIS TIME. SALOMÓN STATED UNDERSTANDING AND SHE DID STATE SHE WILL BE BRINGING IN SOME PERSONAL BELONGINGS AND CLOTHING FOR THE PT. SALOMÓN DENIES ANY FURTHER QUESTIONS OR NEEDS, WILL CONTINUE FOLLOWING HER SISTER WHILE SHE IS IN THE HOSPITAL.
--- NOTE | 2017-08-10 17:00 | NUR ---
ASSISTED PATIENT TO CHAIR FOR DINNER. PATIENT MOVING MUCH BETTER TODAY THAN SHE DID YESTERDAY. PATIENT DENIES PAIN. DENIES NEEDS. CALL LIGHT IN REACH.
--- NOTE | 2017-08-10 18:21 | NUR ---
ASSISTED PATIENT TO BED FROM CHAIR. IV REMOVED BY FREIGHT SORTER. CATH INTACT. PATIENT DENIES NEEDS, CALL LIGHT IN REACH.
--- NOTE | 2017-08-10 18:23 | NUR ---
Patient transfered to swing bed status today. Patient was up to shower this morning and ambulated from bed to chair, tolerated well. Patient continues to have an occasional cough and expritory wheezes upon exertion. Wound dressing on left lower leg was cleaned, assesed and repacked, no abnormalities noted. Patient had an extra large BM. Total shift intake of 1610 and output of 1325. Peripheal IV removed at 1815, insertion site appears normal and tip was intact Patient denies pain or any needs at this time, currenly resting in bed.
--- NOTE | 2017-08-10 18:42 | NUR ---
TITRATED O2 FROM 2->1L/MIN. O2 SAT FROM 92-95% ON 1L. PATIENT AMBULATING WELL. WALKED AROUND MS UNIT A FEW TIMES. LOW URINE OUTPUT, ADMINISTERED EXTRA DOSE OF LASIX AND METAZALONE TONIGHT. NO PAIN. NO PITTING EDEMA. CRACKLES HEARD IN LLL ONLY.
--- NOTE | 2017-08-10 18:42 | NUR ---
PATIENT RESTING IN BED. ASSISTED WITH REPOSITIONING. FAMILY IN ROOM. WATER PITCHER FILLED. PATIENT DENIES NEEDS. CALL LIGHT IN REACH.
--- NOTE | 2017-08-10 20:00 | NUR ---
RECEIVED REPORT AT 1900. FOUND PT IN BED SLEEPING.
--- NOTE | 2017-08-10 20:22 | NUR ---
Rounded up as charge nurse, pt in bed, no resp distress, no requests. Continues on droplet isolation, pt swing bed status
--- NOTE | 2017-08-10 21:30 | NUR ---
VITALS AND I&OS DONE AND CHARTED. BEDSIDE TABLE AND CALL LIGHT WITHIN REACH. PT NEEDS NOTHING ELSE AT THIS TIME.
--- NOTE | 2017-08-10 22:00 | NUR ---
V/S ARE WDL, ALL LOBES HAVE EXPIRATORY WHEEZING PRESENT, ABD SOUNDS ARE PRESENT, LEFT ANKLE HAS +3 EDEMA, RIGHT ANKLE AND LEG HAS +2 EDEMA, PT OVERALL SEEMS TO HAVE GENERAL EDEMA. PT OVERALL IS MUCH MORE ALERT THAN WHEN SHE WAS ADMITTED.
--- NOTE | 2017-08-11 00:15 | NUR ---
PT IS SLEEPING AT THIS TIME.
--- NOTE | 2017-08-11 02:30 | NUR ---
DRESSING CHANGE ON LEFT LOWER LEG WAS DONE. PT SLEPT THROUGH DRESSING CHANGE. WOUND HAS NO SIGNS OF INFECTION. NO NEW CONCERNS AT THIS TIME.
--- NOTE | 2017-08-11 04:00 | NUR ---
PT APPEARS TO BE AWAKE WATCHING TV.
--- NOTE | 2017-08-11 05:19 | NUR ---
OVERALL PT HAD AN UNEVENTFUL NIGHT. V/S ARE WDL, PT OVERALL IS ALERT, PT IS NOT PUTTING IN A LOT OF EFFORT IN REGARDS TO MOVING AROUND. ALL LOBES HAVE EXPIRATORY WHEEZING PRESENT, PT DENIES SOB, BG WAS 243 AND PT RECEIVED 5 UNITS OF NOVOLOG. LEFT LEG HAS PITTING EDEMA +3, RIGHT LEG HAS +2 EDEMA, WOUND DRESSING CHANGE WAS DONE AT 0230 PER ORDER, PT SLEPT THROUGH IT. WOUND IS CLEAN WITH NO SIGNS OF INFECTIOUS TISSUE. NO NEW CONCERNS FOR THIS PT SO FAR.
--- NOTE | 2017-08-11 08:10 | NUR ---
AUSCULTATED PATIENT'S LUNG BURRELL, WHEEZING THROUGHOUT UPPER AND MID BASES ETHEL, PATIENT COUGHED, NOTED NO IMPROVMENT. DIMINISHED IN BASES. DISCUSSED LUNG SOUNDS WITH RT, NO SCHEDULED NEBS. RT IN TO ROOM TO ASSESS PATIENT, RT REPORTED CRACKLES ON LEFT SIDE, AND DIMISHED IN BASES, PLANS FOR RT TO WORK TO WITH PATIENT WITH CPT THROUGHOUT DAY. PATIENT STATES " I FEEL LIKE MY BREATHING IS GETTING WORSE". PATIENT HAS 1-2+ EDEMA IN LOWER EXTREMITIES. STUDENT NURSE AND INSTRUCTOR KEN NOTED THAT PATIENT APPEARS MORE PUFFY THEN DAY PRIOR. WILL REPORT FINDINGS TO DR. DENT.
--- NOTE | 2017-08-11 08:26 | NUR ---
REPORTING FINDINGS AND CONCERNS TO DR. DENT THIS MORNING IN REGARDS TO MORNING ASSESMENT. PNEAMONIA IS IN LEFT SIDE, CRACKLES ARE TO BE EXPECTED IN THAT REGION. PLAN TO HAVE PATIENT DEMONSTRATE BREATHING EXERCISES THROUGHOUT DAY WHILE AWAKE OFTEN POSSIBLE. DISCUSSED WITH WAREHOUSE LABORER AND PATIENT, BOTH VERBALIZED UNDERSTANDING OF POC.
--- NOTE | 2017-08-11 09:16 | NUR ---
0812 RN REQUEST SVN. PT ASSESSED BY RT, SVN NOT INDICATED AT THIS TIME. LUNG SOUNDS DIMINISHED THROUGHOUT, FINE CRACKLES IN LLL. NO WHEEZES AT THIS TIME. NURSE AWARE. PT STATES HER BREATHING "FEELS GOOD." NO SVN GIVEN.
--- NOTE | 2017-08-11 12:48 | NUR ---
Patient c/o of wheezing this morning, however complaint subsided after abmulating to chair. Lung sounds assessed Q2, wheezes noted. IS was encouraged by RN and utilized by patient. Patient tolerated PT and ambulated to comode without difficulty with assistance from PT and RN. Patient had XL BM and miralax was withheld. Dressing on LLE was changed at 1220. Wound appears normal and not infectious. Patient denies pain or discomfort at this time. Patient is up eating lunch and does not state any needs.
--- NOTE | 2017-08-11 13:13 | NUR ---
PT SISTER IN ROOM, WENT IN AND DISCUSSED THE PLAN OF CARE WITH HER AND THE PT. BOTH STATED UNDERSTANDING AND DENIED FURTHER QUESTIONS AT THIS TIME.
--- NOTE | 2017-08-11 13:27 | NUR ---
PT'S SISTER SALOMÓN IN WITH PT. PT SAID HUSAM, AND WELCOMED ME IN, THEN DOZED OFF. I HAVE KNOWN SALOMÓN A NUMBER OF YEARS, AND SHE FELT FREE TO ASK ME TO EXPLAIN PT SWING OR TRANSITIONAL STATUS. AFTER A BRIEF EXPLAINATION, SHE FELT CONFIDENT THAT IS THE RIGHT CHOICE FOR HER SISTER. EXTENDED A BLESSING, WILL CONTINUE TO FOLLOW
--- NOTE | 2017-08-11 16:57 | NUR ---
WE TOOK PATIENT TO THE BATHROOM. I CHECKED HER BLOOD SUGAR. SHE IS SITTING UP IN HER CHAIR EATING HER DINNER.
--- NOTE | 2017-08-11 19:39 | NUR ---
RECIEVED REPORT FROM DAY SHIFT NURSE. PATIENT SLEEPING IN CHAIR. BREATHING EVEN AND UNLABORED. CALL LIGHT IN REACH.
--- NOTE | 2017-08-11 19:44 | NUR ---
PATIENT UP THROUGHOUT DAY TO RECLINER, BREATHING EXCERCISES WITH IS AND CPT, PATIENT BREATHING IMPROVED DAY ADVANCED. DRESSING CHANGE TO LOWER LEFT EXTREMITY. NO S/S OF INFECTIONS. PATIENT FAMILY BROUGHT CLOTHES IN, PATIENT EXCITED FOR NIGHT GOWNS. 2 PERSON ASSIST WITH WALKER. LARGE BM TODAY, AYALA DRAINING WELL. VS STABLE.
--- NOTE | 2017-08-11 20:27 | NUR ---
TRANSFERRED PATIENT FROM CHAIR TO [facility]. PATIENT HAD SMALL SOFT BM. PERICARE PERFORMED. HEMORRHOIDS NOTED. BARRIER CREAM APPLIED. BRIEF IN PLACE. PATIENT TO BED. FINE CRACKLES HEARD IN LLL. PATIENT HAS MOIST, NON-PRODUCTIVE COUGH AT TIMES. BREATHING IS EVEN AND UNLABORED. PATIENT IS STILL VERY SLOW MOVING AND NEEDS 2 PERSON ASSISTANCE TO STAND UP. SHE BECOMES VERY ANXIOUS WHEN SHE IS UP BECAUSE SHE THINKS HER LEGS ARE GOING TO GIVE OUT ON HER. HR REGULAR. BS ACTIVE. +2 EDEMA IN RLE AND +3 IN LLE. WHEN I CAME ON SHIFT PATIENT WAS SITTING UP IN HER CHAIR WITH LEGS AT A DANGLE. THIS COULD BE THE REASON WHY SHE IS MORE EDMEATOUS THAN PREVIOUS DAYS I HAVE BEEN TAKING CARE OF HER. PALPABLE PEDAL PULSES. LOWER EXTREMETIES ARE COOL TO TOUCH. PATIENT STATES THEY DO NOT FEEL COLD. DENIES NUMBNESS AND TINGLING. SHE IS ALERT AND ORIETNED X 4. PATIENT DENIES PAIN. DRESSING ON LLE C/D/I. PLAN FOR DRESSING CHANGE TONIGHT. PATIENT DENIES NEEDS. CALL LIGHT IN REACH.
--- NOTE | 2017-08-11 21:36 | NUR ---
VITALS AND I&OS DONE AND CHARTED. NOTIFIED HER RN TRAVIS OF LOW URINE OUTPUT. BEDSIDE TABLE AND CALL LIGHT WITHIN REACH.
--- NOTE | 2017-08-11 21:53 | NUR ---
PATIENT SLEEPING. BREATHING IS EVEN AND UNLABORED. CALL LIGHT IN REACH.
--- NOTE | 2017-08-12 01:20 | NUR ---
PATIENT SLEEPING. BREATHING EVEN AND UNLABORED. CALL LIGHT IN REACH.
--- NOTE | 2017-08-12 03:00 | NUR ---
PATIENT SLEEPING. DRESSING CHANGE COMPLETE PER DR. YU'S ORDERS. WOUND BED BEEFY RED. ECCHYMOTIC AROUND SURGICAL SITE. AYALA CATH EMPTIED. CALL LIGHT IN REACH.
--- NOTE | 2017-08-12 05:50 | NUR ---
PATIENT SLEEPING. BREATHING EVEN AND UNLABORED. AYALA DRAINING WELL. CALL LIGHT IN REACH.
--- NOTE | 2017-08-12 07:42 | NUR ---
patient did not have a breakfast order, so i got her order and introduced myself the board had already been updated!
--- NOTE | 2017-08-12 08:46 | NUR ---
PT UP IN BED FOR BREAKFAST. PT A/O. BS CHECKED. MORNING MEDICATION GIVEN. XENIA WRAP ON LEFT LEG. 1L O2 ON SATING @ 91%. PT REPORTS NO PAIN AT THIS TIME. CALL [facility] WITHIN REACH. NO OTHER NEEDS AT THIS TIME.
--- NOTE | 2017-08-12 10:27 | NUR ---
NURSE DID PATIENTS VITAL SIGNS, I RECORDED INTAKE AND OUTPUT AND RETOOK TEMP. IT WAS 98.4. I ASKED IF SHE NEEDED ANY OTHER ASSISTANCE AND SHE SAID NO.
--- NOTE | 2017-08-12 12:00 | NUR ---
PT UP IN CHAIR. REPORTS NO PAIN AT THIS TIME. 1L O2 IN PLACE. PHYSICAL THERAPY IN ROOM. PT WALKED TO SINK AND BACK WITH. TOLLERATED WELL. 2PA TO STAND UP. LEFT LEG DRESSING C/D/I. LUNCH AT BEDSIDE. 5 UNTIS INSULIN GIVEN FOR 275 BS. CALL LGT WITHIN REACH. NO OTHER NEEDS AT THIS TIME.
--- NOTE | 2017-08-12 13:40 | NUR ---
transferred from chair to bed 2PA with FWW. pt slow and weak with movement. 2l [address]
--- NOTE | 2017-08-12 14:26 | NUR ---
PATIENT WAS IN BED, I DID HER INTAKE AND OUTPUT, SHE DIDNT NEED ANY ASSITANCE AND SHE SAID THAT SHE WAS COMFORTABLE.
--- NOTE | 2017-08-12 15:30 | NUR ---
PT IN BED NOW. REPORTS 5/10 PAIN. GAVE TYLENOL 500MG. PERFORMED DRESSING CHANGE. SOAP AND WATER CLENSE, PACKED WITH DAMP KERLIX, COVERED WITH ABD AND WRAPPED WITH XENIA BANDAGE. PT TOLLERATED WELL. STATED,' IT WASNT PAINFUL THINS TIME. REPORTS NO OTHER NEEDS AT THIS TIME. CALL [facility] WITHIN REACH.
--- NOTE | 2017-08-12 17:50 | NUR ---
SWING BED PT. NO IV ACCESS. ON DROPLET PRECAUTIONS UNTIL 08/14. PT IS A 2PA TO STAND UP. DRESSING ON LEFT LEG CHANGED @ 1500 TODAY. PT IS DIABETIC ON ADA DIET AND SLIDING SCALE INSULIN. VVS TODAY. PT WANTS TO SLEEP A LOT. PT USING IS AND ACAPPELLA. AYALA IN PLACE. GOOD U/O.
--- NOTE | 2017-08-12 21:13 | NUR ---
HOB ELEVATED, O2 2L N/C, DROWSY, OPENS EYES AFTER SEVERAL CUES. ALERT TO SELF. HELPS WITH TURNING, MULTIPLE BRUISING ALL OVER BODY, GENERALIZED EDEMA HANDS, LOWER LEGS, XENIA WRAP OVER LEFT LOWER LEG IN PLACE, F/C PATENT, DRAINING YELLOW URINE. COOP WITH ASSESSMENT
--- NOTE | 2017-08-13 00:16 | NUR ---
RECIEVED REPORT FROM TRACEY MOREL. PATIENT SLEEPING. NASAL CANNULA IN PLACE AT 1L/MIN. CALL LIGHT IN REACH.
--- NOTE | 2017-08-13 03:31 | NUR ---
PATIENT SLEEPING. NASAL CANNULA IN PLACE. CALL LIGHT IN REACH.
--- NOTE | 2017-08-13 07:22 | NUR ---
PATIENT UP TO BSC WITH 2 PERSON ASSIST. PATIENT HAD HUGE SOFT BOWEL MOVEMENT. TO CHAIR. DRESSING CHANGE TO LLE WOUND PER MD ORDER. THERE IS A SMALL BLACK SPOT ON MEDIAL EDGE OF WOUND. PATIENT DENIES PAIN. NASAL CANNULA IN PLACE AT 1L/MIN. WATER PITCHER FILLED. PATIENT DENIES FURTHER NEEDS. CALL LIGHT IN REACH.
--- NOTE | 2017-08-13 08:45 | NUR ---
PT UP IN CHAIR WITH FEET ELEVATED. AYALA CATH IN PLACE. [address] PT REPORTED USING THE IS THIS MORNING AND GETTING IT UP TP 1000. PT REPORTS NO PAIN THIS AM. DC'D PT AYALA CATHETER. PT TOLLERATED WELL. LUNG SOUND CLEAR, EXCEPT RRL HAS FINE CRACKLES. PT HAS BILAT LE EDEMA, NON-PITTING. DRESSING IS C/D/I. REPORTS NO OTHER NEEDS AT THIS TIME. [facility] WITH[facility]ACH.
--- NOTE | 2017-08-13 10:00 | NUR ---
PT UP IN CHAIR. REPORTS NO PAIN. STILL HAS NOT VOIDED. WILL CONTINUE TO MONITOR UNTIL 1300. LEGS ELEVATED IN CHAIR.1L O2 NC IN PLACE. CALL [facility] WITHIN REACH. NO OTHER NEEDS AT THIS TIME.
--- NOTE | 2017-08-13 12:32 | NUR ---
PT BACK TO BED AFTER LUNCH. 3 UNITS GIVEN FOR COVERAGE. 1L STILL IN PLACE. REPORTS NO PAIN AT THIS TIME. PT UP TO COMODE WITH FELICIA AND OTHER RN. REPORTED TO ME PT DID PT URINATED AND HAD A BOWEL MOVEMENT. UNABLE TO MEASURE THE AMMOUNT. WILL PLACE A HAT IN COMMODE FOR NEXT TIME. REPORTS NO OTHER NEEDS AT THIS TIME. [facility]ACH.
--- NOTE | 2017-08-13 14:40 | NUR ---
pt had bowel movement in bed. change. evening assessment complete. expiratory wheezes heard. trying RA. keeping pt on continual pulse ox. satting at 91%. no other needs at this time. call [facility] within reach.
--- NOTE | 2017-08-13 15:57 | NUR ---
PT APPEARS TO BE SLEEPING. O2 SAT IS 90% ON RA. TOLLERATING WELL. RR WNL. CASLL LGIHT WITHIN REACH. PT VISABLE FROM NURSING STATION.
--- NOTE | 2017-08-13 16:55 | NUR ---
changed pt leg dressing. serosenguenous drainage. 1 dark black spot on the edge, the size of a q-tip. pt tollerated well. just got out of the shower. tired now. bs checked. pt up in chair for dinner.
--- NOTE | 2017-08-13 18:20 | NUR ---
PT HAD A GOOD DAY. LUCY FORTE'D AT 0900. OUTPUT QUESTIONABLE. NO MEASUREMETN AVAILIBLE. 2 LARGE BOWEL MOVEMENTS TODAY. HOLD MIRILAX TONIGHT. LAST BS 211. 3 UNITS GIVEN. PT ON DROPLET PRECAUTIONS UNTIL TOMORROW. ADA DIET. 2PA WITH FWW. DRESSING ON LEFT LEG CHANGED @ 1600. SMALL NECROTIC LOOK AREA ON THE EDGE OF WOUND. PT ORIENTED X4. ON RA BUT 1L NC IF NEEDED. PT SHOWERED TODAY.
--- NOTE | 2017-08-13 20:54 | NUR ---
VITALS AND I&OS DONE AND CHARTED. HELPED RN GAGAN GET HER TO THE BSC AND THEN INTO BED. PT NEEDS NOTHING ELSE AT THIS TIME. FRESH WATER GIVEN. BEDSIDE TABLE AND CALL LIGHT WITHIN REACH.
--- NOTE | 2017-08-13 21:57 | NUR ---
PT LAYING IN BED, APPEARED TO BE SLEEPING WHEN ENTERING ROOM. WOKE EASILY TO RN VOICE. PT DENIES PAIN AT THIS TIME. DRESSING TO LEFT LEG IS CLEAN DRY AND INTACT. FRESH WATER AT BEDSIDE. CALL LIGHT IN REACH. NO FURTHER NEEDS.
--- NOTE | 2017-08-13 22:58 | NUR ---
PT APPEARS TO BE SLEEPING. RR WNL AND UNLABORED.
--- NOTE | 2017-08-14 03:19 | NUR ---
PT APPEARS TO BE SLEEPING. RR WNL AND UNLABORED. LIGHTS AND TV OFF IN ROOM.
--- NOTE | 2017-08-14 06:05 | NUR ---
changed dressing to left leg exactly per dr lobo orders. pt up to bsc to void. pt also had large urine incontinence. pt up in chair at this moment. alert and oriented x4. denies pain. pleasent. call light in reach. new attends. watching tv.
--- NOTE | 2017-08-14 06:39 | NUR ---
PT HAD UNEVENTFUL NIGHT, SLEPT MAJORITY OF SHIFT. INCONTINENT OF URINE. DRESSING CHANGED THIS MORNING, WOUND BED APPEARS TO BE HEELING. PT ALERT AND ORIENTED, PLEASENT DEMEANOR. 2P ASSIST WITH FWW.
--- NOTE | 2017-08-14 07:47 | NUR ---
recieved report from restaurant shift supervisor rn. pt up in chair. using bedside commode. reports no pain at this time. call light within reach. on ra. rr wnl. dressing c/d/i.
--- NOTE | 2017-08-14 10:00 | NUR ---
PATIENT SITTING UP IN CHAIR, STUDENT NURSE PRESENT. THIS MEDICAL AFFAIRS DIRECTOR TIDIED ROOM AND TOSSED GARBAGE. CALL BUTTON IN REACH, NO OTHER NEEDS.
--- NOTE | 2017-08-14 11:05 | NUR ---
PT UP IN CHAIR. IN A PLEASENT MOOD. RR WNL, NO SOB. PT IS DOING A WORD SEARCH. GLASSES ON AND TV ON. PT IS ON RA. DRESSING C/D/I, LUNGS ARE SLIGHTLY DIMINISHED. CALL [facility] WITHIN REACH. REPORTS NO PAIN AND NO OTHER NEEDS AT THIS TIME. FILLED WATER.
--- NOTE | 2017-08-14 12:14 | NUR ---
PT UP IN CHAIR WATCHING TV. GAVE WARM RAG TO CLEAN FACE. 5 UNITS INSULIN GIVEN FOR COVERAGE. REPORTS NO PAIN AT THIS TIME. CALL LIGHT WITHIN REACH.
--- NOTE | 2017-08-14 12:43 | NUR ---
PT SITTING UP IN CHAIR, JUST FINISHING LUNCH. SHE HAD A BIG SMILE, SAID SHE HAD A GOOD NIGHT'S SLEEP AND WAS FEELING PRETTY GOOD. PLEASANT VISIT, EXTENDED A BLESSING, WILL CONTINUE TO FOLLOW
--- NOTE | 2017-08-14 15:25 | NUR ---
DRESSING CHANGE CHANGED DRESSING ON LEFT LEG. WOUND APPEARS TO BE HEALING WELL. WOUND BED WAS RED. OUTER EDGES ARE TAPPERING. SLIGHT UNDERMITTING @ 12OCLOCK. PT TOLLERATED WELL. NO PAIN MEDICATION GIVEN. NO SIGNS OF INFECTION. PACKED WITH KELIX TOPPED WITHDRY ABD AND WRAPPED WITH XENIA WRAP. SCANT AMMOUND OF SERRIOUS DRAINAGE NOTED.
--- NOTE | 2017-08-14 16:25 | NUR ---
HELPED PT TO THE BATHROOM AND TO BED PT HAS CALL LIGHT IN REACH.
--- NOTE | 2017-08-14 18:03 | NUR ---
PT REQUESTED TO GO BACK TO BED AFTER DINNER. REPORTED NO PAIN. TRANSFERED WITH 2PA AND FWW. REFRESHED ICE WATER. FORGETS HOW TO USE CALL LIGHT. REMINDED. REPORTS NO OTHER NEEDS AT THIS TIME.
--- NOTE | 2017-08-14 18:17 | NUR ---
PT HAD GOOD DAY. WALKED IN KUMAR WITH PHYSICAL THERAPY. ADA DIET. 2PA FWW. NO IV. INCONTINENT. HELD MIRALAX TODAY. ACCU CHECKS. DRESSING CHANGE Q SHIFT. VVS. HTN. OT, PT. NO ISOLATION.
--- NOTE | 2017-08-14 20:14 | NUR ---
PT APPEARED TO BE SLEEING WHEN ENTERING ROOM. WOKE TO RN VOICE. PT DROWSY AT THIS TIME. DAYSHIFT RN REPORTED PT UP ALOT TODAY AND WORKED WITH PHYSICAL THERAPY, DID WELL TODAY. PT REPORTS FEELING ACHES IN HER BACK AND IN HER LEGS, GAVE TYLENOL FOR GENERAL BODY ACHES. ALERT AND ORIENTED. VITALS TAKEN. FRESH ICE WATER AT BEDSIDE. CALL LIGHT IN REACH.
--- NOTE | 2017-08-14 21:25 | NUR ---
ROUNDED CHARGE. PATIENT IS RESTING IN BED. PATIENT HAS NO COMPLAINTS, COMMENTS, QUESTIONS, OR CONCERNS AT THIS TIME. CALL LIGHT IN REACH.
--- NOTE | 2017-08-14 23:25 | NUR ---
PT APPEARS TO BE SLEEPING. RR WNL AND UNLABORED.
--- NOTE | 2017-08-15 02:20 | NUR ---
PT UP TO BSC TO VOID. INCONTINENT IN BED AND IN ATTENDS ALSO. CLEANED PT UP, NEW ATTENDS AND NEW CHUX ON BED. PT BACK IN BED. NO FURTHER NEEDS. CALL LIGHT IN REACH.
--- NOTE | 2017-08-15 06:10 | NUR ---
changed dressing to left leg. pt tolerated well. dressing changed exactly per dr lobo orders. wound bed is pink, appears to be healing.
--- NOTE | 2017-08-15 06:14 | NUR ---
PT SLEPT WELL OVERNIGHT. UP TO BSC A COUPLE OF TIMES TO VOID AND SHE HAD A SMALL BM THIS MORNING. ALERT AND ORIENTED X4. STILL REQUIRING 2 PERSON ASSIST WITH FWW. DRESSING CHANGED THIS MORNING PER ORDERS. PT PLEASENT AND COOPERATIVE.
--- NOTE | 2017-08-15 07:15 | NUR ---
RECEIVED REPORT. PT UP TORESTROOM. TOLLERATING WELL. 2PA. REPORTS NO PAIN AND NO NEEDS AT THIS TIME. CALL [facility].
--- NOTE | 2017-08-15 07:15 | NUR ---
ASSISTED PATIENT TO BATHROOM, USING FWW. PATIENT MOVED SLOWLY BUT VERY SMOOTHLY.PATIENT USED CALL LIGHT APPROPRIATELY FROM BATHROOM. PATIENT BACK TO CHAIR. STUDENT IN ROOM. CALL LIGHT IN REACH. NO OTHER NEEDS AT THIS TIME.
--- NOTE | 2017-08-15 09:27 | NUR ---
MORNING ASSESMENT COMPLETE. LUNGS SOUNG CLEAR WITH SOME RIGHT EXPIRATORY WHEZZING HEARD. BILAT LE EDEMA +2 RIGHT LEG, +3 RIGHT. BOWEL TONES ACTIVE. PT A/O X4. PLEASENT. CALL LGT WITHIN REACH. REFRESHED WATER. NO OTHER NEEDS AT THIS TIME.
--- NOTE | 2017-08-15 12:07 | NUR ---
PT UP IN CHAIR FOR LUNCH. WANTS TO TAKE A NAP. TO COMMODE THEN BACK TO BED VIA 2PA. PATIENT TOLLERATED WELL. REPORTS NO PAIN AT THSI TIME. CALL [facility] WITHIN REACH.
--- NOTE | 2017-08-15 12:17 | NUR ---
PT SITTING IN CHAIR, SEEMS TO BE ENJOYING ALL THE ACTIVITY IN THE KUMAR BY RN'S STATION. BIG SMILE, AND STATED THAT SHE SLEPT GOOD LAST NIGHT. SHE TALKED TO ME ABOUT HER SISTER SALOMÓN, THAT SEEMS TO LOOK IN AFTER HER. UPON DC, PT WILL RETURN TO [facility]. [facility]-HER HOME. WILL FOLLOW NEEDED
--- NOTE | 2017-08-15 17:58 | NUR ---
SWING BED PATIENT. DRESING CHANGE Q SHIFT. PATIENT HAD A GREAT DAY. 2PA WITH FWW. ACCU CHECKS. ADA DIET. GOOD I/O. INCONT @ TIMES. DRESSING CHANGED @1800.
--- NOTE | 2017-08-15 18:56 | NUR ---
PT IN BED. GARBAGE TAKEN OUT DINNER TRAY TAKEN. I AND O DONE
--- NOTE | 2017-08-15 20:01 | NUR ---
ROUNDED CHARGE. PATIENT ASSISTED A 2PA TO BS. PATIENT WAS ABLE TO VOID. PATIENT IS NOW BACK IN BED RESTING. PATIENT DENIES ANY COMMENTS, QUESTIONS, OR CONCERNS. NO FURTHER NEEDS NOTED.
--- NOTE | 2017-08-15 20:02 | NUR ---
MARIA TERESA LAMB AND I HELPED PATIENT USE THE COMMODE USING WALKER AND BACK TO BED. CALL LIGHT WITHIN REACH.
--- NOTE | 2017-08-15 21:08 | NUR ---
pt appeared to be sleeping when entering room. woke easily to rn voice. pt pleasent, alert and oriented x4. gave tylenol for generalized body aches. rt in with pt doing incentive spirometer and accapella. pt has no further needs at this time. call light in reach.
--- NOTE | 2017-08-15 23:51 | NUR ---
PT APPEARS TO BE SLEEPING. LIGHTS AND TV OFF IN ROOM.
--- NOTE | 2017-08-16 05:17 | NUR ---
pt up to bsc to have a bm and void. then into chair. dressing changed per dr spivey orders, pt tolerated well. call light in reach.
--- NOTE | 2017-08-16 08:00 | NUR ---
REPORT RECEIVED FROM ODALYS AT THIS TIME. PATIENT IS SITTING UP IN THE CHAIR EATING BREAKFAST, GLUCOSE LEVEL THIS AM WAS 240, 5 UNITS OF INSULIN GIVEN SQ AT THIS TIME.
--- NOTE | 2017-08-16 08:00 | NUR ---
PT UP TO COMMODE AND BACK TO CHAIR FOR BREAKFAST. CALL LIGHT IS IN REACH.
--- NOTE | 2017-08-16 09:15 | NUR ---
PATIENT 2 PERSON ASSIST UP TO THE BATHROOM TO VOID, PATIENT ON THE TOP OF HER BUTTOX HAS A DIME SIZE REDDENED SPOT THAT BARRIER CREAM WAS APPLIED TO AFTER SHE VOIDED. CURTIS CARE WAS DONE AND SHE WAS ASSISTED BACK TO BED.
--- NOTE | 2017-08-16 09:41 | NUR ---
VS AND I&O'S TAKEN AND DOCUMENTED. PT IS UP IN CHAIR WATCHING TV. PT STATES SHE HAS NO NEEDS AT THIS TIME. CALL LIGHT IS IN REACH.
--- NOTE | 2017-08-16 11:19 | NUR ---
PATIENT'S GLUCOSE WAS 177 AT THIS TIME, PATIENT GIVEN 3 UNITS OF INSULIN AT THIS ITME
--- NOTE | 2017-08-16 11:50 | NUR ---
PATIENT SITTING UP IN THE CHAIR EATING LUNCH, SHE REMAINS ON RA AND HAS NO C/O PAIN AT THIS TIME.
--- NOTE | 2017-08-16 13:53 | NUR ---
PATIENT ASSISTED UP TO THE BATHROOM TO VOID, CLEAR YELLOW URINE. PATIENT DOING BETTER AMBULATING WITH 1 PERSON ASSIST JUST NEEDS 2 PERSON ASSIST UP OOB. PATIENT THEN ASSISTED BACK TO THE CHAIR.
--- NOTE | 2017-08-16 15:20 | NUR ---
PHONE CALL RECEIVED REGARDING WOUND CONSULT FOR THIS PATIENT. RN REPORTS DRESSING CHANGE WAS LAST COMPLETED THIS AM. LEFT LOWER LEG DRESSING REMOVED AND GAUZE REMOVED OUT OF LEFT ANTERIOR ALVES WOUND BED. SMALL PIECES OF GAUZE ARE NOTED TO WOUND BED. WOUND CLEANSER APPLIED TO WOUND BED AND ATTEMPT MADE TO RETRIVE GAUZE PIECES. PATIENT DOES NOT TOLERATE GENTLE PALPATION OF THE WOUND BED. WOUND BED APPEARS BEEFY RED, GRANULATION TISSUE. WOUND MEASURES 5 CM LONG X 6 CM WIDE AND APPROXIMATELY 0.2 CM DEEP. SKIN BARRIER APPLIED TO CURTIS-WOUND SKIN AND ALLEVYN 5" X 5" DRESSING APPLIED. DRESSING IS DATED AND NEXT DRESSING CHANGE IS DUE ON 08/19/17 OR PRN SATURATION OR DRESSING INSTABILITY. NEW ORDER RECEIVED FROM DR. HUDSON. VERBAL REPORT GIVEN TO MARIA TERESA DORSEY AND HER QUESTIONS ARE ANSWERED. COPY OF ORDER MADE AND LEFT WITH DRESSING SUPPLIES IN PATIENT'S ROOM. I WILL FOLLOW UP ON 08/19/17 ON STATUS OF WOUND HEALING.
--- NOTE | 2017-08-16 15:20 | NUR ---
WOUND CONSULT WITH LIZANDRO PERKINS AT THIS TIME, PATIENT DRESSING CHANGES NOW EVERY 3 DAYS WITH AN ALEVYN DRESSING TO HER LEFT LEG.
--- NOTE | 2017-08-16 16:32 | NUR ---
PATIENT SHOWER COMPLETED AT THIS TIME, OCCUPATIONAL THERAPY HELPING WITH GETTING THE PATIENT TO WASH HERSELF WITHOUT ANY HELP
--- NOTE | 2017-08-16 16:49 | NUR ---
BLOOD GLUCOSE WAS 171, 1 UNIT OF INSULIN GIVEN SQ AT THIS TIME
--- NOTE | 2017-08-16 17:27 | NUR ---
PATIENT HAD A WOUND CONSULT TODAY FROM LIZANDRO PERKINS. SHE NOW HAS DRESSING CHANGES EVERY 3 DAYS AND AN ALEVYN PATCH WAS APPLIED TO HER LEFT ALVES. THIS PATIENT NEEDS 2 PEOPLE TO HELP HER UP OUT OF HER CHAIR BUT AMBULATING TO THE BATHROOM AND GETTING UP FROM THE TOILET SHE DOES WELL WITH A 1 PERSON ASSIST. PATIENT TOOK A SHOWER TODAY AND WASHED HER HAIR.
--- NOTE | 2017-08-16 19:10 | NUR ---
RECEIVED REPORT FROM DAY SHIFT RN. PATIENT IS RESTING IN BED WITH EYES CLSOED, RR 18. CALL LIGHT IN REACH.
--- NOTE | 2017-08-16 21:25 | NUR ---
PATIENT ASSESMENT COMPLETED. PATIENTS EVENING MEDCIATIONS GIVEN PER ORDER. PATIENT IS RESTINGI N BED. PATIENT HAS AN ALLYVN DRESSING ON HER LEFT ALVES AREA. DRESSING IS C/D/I, NO DRAINAGE NOTED. PATIENT DENIES ANY PAIN. PATIENT DNIES ANY FURTHER NEEDS AT THIS TIME. CALL LIGHT IN REACH.
--- NOTE | 2017-08-16 22:43 | NUR ---
VITALS AND I&OS DONE AND CHARTED. BEDSIDE TABLE AND CALL LIGHT WITHIN REACH.
--- NOTE | 2017-08-17 00:36 | NUR ---
PATIENT IS RESTING IN BED SUPINE WITH HEAD ELEVATED. PATIENTS BREATHING IS EVEN AND UNLABORED, RR 18. CALL LIGHT IN REACH.
--- NOTE | 2017-08-17 03:50 | NUR ---
PATIENT ASSITED TO THE RESTROOM A 1-2 PA W/FWW. PATIENT AMBULATED TO THE RESTROOM. PATIENT WAS ABLE TO VOID. PATIENT GIVEN A BEB BATH. PATIENTS HAIR WASHED WITH SHOWER CAP AND BRUSHED. PATIENTS BEDDING CHANGED. PATIENT IS BACK IN BED RESTING. PATIENT DENIES ANY PAIN. DRIER AND GRINDER TENDER REFILLED ICE WATER. NO FURTHER NEEDS NOTED. CALL LIGHT IN REACH.
--- NOTE | 2017-08-17 04:41 | NUR ---
HELPED MARIA TERESA LAMB GET PT TO THE BATHROOM AND BACK TO BED. GAVE PT A "BED BATH" WASHED HER HAIR WITH THE SHOWER CAP. COMBED HAIR, NEW GOWN AND TOTAL BED CHANGE. FRESH WATER GIVEN. BEDSIDE TABLE AND CALL LIGHT WITHIN REACH.
--- NOTE | 2017-08-17 05:04 | NUR ---
PATIENT RESTED WELL THROUGHOUT THE SHIFT. PATIENT IS ON AN ADA DIET. PATIENT IS A 2PA TO GET OUT OF BED, BUT A 1PA W/FWW WHEN UP AMBULATING. PATIENT HAS ALLYVN APPLIED TO LEFT ALVES THAT IS TO BE CHANGED Q3DAYS OR PRN. PATIENT IS SWING BED. NO IV. PATIENT IS AAO X3, BUT IS SLOW TO ANSWER QUESTIONS AT TIMES. PATIENT USES CALL LIGHT APPROPRIATELY. BED BATH AND HAIR WASHED ON THIS SHIFT.
--- NOTE | 2017-08-17 06:49 | NUR ---
PATIENTS MORNING MEDICATION GIVEN PER ORDER. PATIENT DENIES ANY NEEDS AT THIS TIME. PATIENT REPOSTIONED IN BED. PATIENT DENIES ANY FURTHER NEEDS. CALL LIGHT IN REACH.
--- NOTE | 2017-08-17 08:31 | NUR ---
HELPED PATIENT SHAVE HER FACE AND ALSO PUT LOTION ON. SHE USED THE MOUTH WASH AND ALSO SHE WASHED HER FACE. SHE IS SITTING UP IN HER CHAIR WATCHING TV.
--- NOTE | 2017-08-17 10:00 | NUR ---
PATIENT WORKING WITH PHYSICAL THERAPY, DRESSING SELF AND AMBULATING IN HALLS. PATIENT REPORTS FEELING "STRONGER", NOW SITTING UP IN RECLINER COLORING. FULL BODY ASSESMENT DONE.
--- NOTE | 2017-08-17 11:58 | NUR ---
DID PATIENT'S BLOOD SUGAR CHECK AND ALSO GOT HER SOME MORE ICE WATER. NOW IS EATING LUNCH.
--- NOTE | 2017-08-17 16:00 | NUR ---
PATIENT UP IN RECLINER, LOOKING OUT WINDOW. STATES " I AM HAVING A GOOD DAY" PATIENT SHOWERED. NO COMPLAINTS OF PAIN AT THIS TIME. CALL LIGHT WITHIN REACH. PROVIDED PATIENT WITH ICE WATER.
--- NOTE | 2017-08-17 16:27 | NUR ---
DID PATIENT'S BLOOD SUGAR CHECK.
--- NOTE | 2017-08-17 19:10 | NUR ---
SHIFT REPORT RECEIVED. PATIENT RESTING IN BED. EYES CLOSED. RR 18.
--- NOTE | 2017-08-17 20:30 | NUR ---
ASSISTED PATIENT TO THE BATHROOM. 1PA W/FWW. PATIENT TOLERATED WELL. SHE HAD SMALL BM. PATIENT BACK TO BED. CALL LIGHT IN REACH.
--- NOTE | 2017-08-17 22:10 | NUR ---
EVEING MEDS GIVEN PER ORDER. PATIENT DENIES PAIN. SHE IS ALERT AND ORIENTED TO HER SURROUNDINGS, NOT THE DATE OR EVENT THAT BROUGHT HER TO THE HOSPITAL. PATIENT IS ON ROOM AIR. LUNGS ARE CLEAR, DIMINISHED IN THE BASES. ABD IS SOFT AND ROUND, BOWEL SOUNDS ACTIVE. GENERALIZED EDEMA NOTED IN BOTH HANDS AND HER LOWER EXTREMITIES. THE DRESSING ON HER LEFT ALVES HAD SOME DRAINAGED AND WAS UNATTACHED AROUND TWO SIDES. NEW DRESSING APPLIED. PATIENT DENIES OTHER NEEDS. CALL LIGHT IN REACH.
--- NOTE | 2017-08-17 23:51 | NUR ---
VITALS AND I&OS DONE AND CHARTED. HELPED HER GO TO THE BATHROOM AND BACK TO BED WITH HER FWW. CHANGED HER ATTEND SOILED WITH URINE. BEDSIDE TABLE AND CALL LIGHT WITHIN REACH. PT NEEDS NOTHING ELSE AT THIS TIME.
--- NOTE | 2017-08-18 01:00 | NUR ---
PATIENT RESTING IN BED. EYES ARE CLOSED. SHE APPEARS COMFORTABLE. RR 17. CALL LIGHT IN REACH.
--- NOTE | 2017-08-18 04:14 | NUR ---
PATIENT RESTING IN BED. EYES CLOSED. RR16. CALL LIGHT IN REACH.
--- NOTE | 2017-08-18 05:28 | NUR ---
PATIENT SLEPT WELL LAST NIGHT. UP TO USE THE BATHROOM WITH 1-2PA W/FWW. PATIENT DENIED PAIN AND NAUSEA. NO IV ACCESS. BGC PER ORDER. ADA DIET.
--- NOTE | 2017-08-18 06:45 | NUR ---
MORNING MEDS GIVEN PER ORDER. PATIENT IS IN GOOD SPIRITS. DENIES NEEDS AT THIS TIME. CALL LIGHT IN REACH.
--- NOTE | 2017-08-18 11:00 | NUR ---
UP TO SHOWER - MOTION PICTURE ACTOR ALERTED NURSE TO DIME SIZED OPEN AREA ON LEFT GLUTEL CHEEK - CLOSE TO MID LINE. ATTEMPTED TO PHOTO - DID NOT ICT DEVELOPMENT MANAGER. DIME SIZE OPEN, COVERED WITH TEGADERM PER DR. RIVAS. DENIES PAIN. UP TO CHAIR FOR LUNCH.
--- NOTE | 2017-08-18 12:25 | NUR ---
THE OCCUPATIONAL THERAPIST AND I HELPED GIVE PATIENT A SHOWER AROUND 11AM. THE PATIENT DID MUCH SHE COULD. ALSO DID BLOOD SUGAR MORNING AND LUNCH TIME.
--- NOTE | 2017-08-18 13:13 | NUR ---
PT SITTING IN CHAIR-HALF ASLEEP. SHE AWOKE WHEN I KNOCKED, SMILED AND WAVED ME IN. I NOTICED BOTH OF HER FOREARMS HAVE LARGE AREAS OF BRUISING. MARIA TERESA JARQUIN THOUGHT IT WAS LATE BRUISING FROM IV SITES. PT SEEMED TO BE IN GOOD SPIRITS- SHE ALWAYS SAYS SHE HAS A GOOD NIGHT'S SLEEP. PLEASANT CONVERSATION, WILL BE AVAILABLE NEEDED
--- NOTE | 2017-08-18 13:56 | NUR ---
SPOKE WITH NAIMA AT [facility] REGARDING PATIENT RETURNING HOME EARLY NEXT WEEK. SHE WILL HAVE RN COME EVALUATE PATIENT ON MONDAY. ALSO DISCUSSED THAT PATIENT IS CLOSE TO A 1 PERSON ASSIST AND STANDBY. DISCUSSED THAT SHE STILL HAS ISSUES NEEDING EXTRA HELP GETTING UP FROM A SITTING POSITION ON CHAIR. NAIMA STATES THIS WON'T BE AN ISSUE PATIENT HAS A LIFT CHAIR. SHE ANTICIPATES PATIENT RETURN TO FACILITY AFTER RN EVALUATION MONDAY. UPDATED DR HUDSON AND STAFF.
--- NOTE | 2017-08-18 15:59 | NUR ---
PATIENT CALLED TOOK HER TO THE BATHROOM. NOW SHE IS SITTING UP IN HER CHAIR. WILL DO BLOOD SUGAR CHECK AROUND 1630.
--- NOTE | 2017-08-18 16:51 | NUR ---
UP IN CH DENIES NEEDS - TALKING WITH DC STRAW HAT WASHER OPERATOR.
--- NOTE | 2017-08-18 17:50 | NUR ---
NEW LEFT SIDE STAGE ONE ULCER TO LEFT GLUTEAL FOLD MIDLINE. COVERED WITH TEGADERM PER DR. RIVAS. OTHER THAN THAT PT DENIES NEEDS - UNEVENTFUL.
--- NOTE | 2017-08-18 19:40 | NUR ---
PATIENT SITTING UP IN HER RECLINER WATCHING TV. DENIES NEEDS AT THIS TIME. CALL LIGHT IN HAND.
--- NOTE | 2017-08-18 20:30 | NUR ---
EVENING MEDS PROVIDED TO PATIENT. SHE IS ORIENTED TO SELF AND SURROUNDINGS. APPEARS TO BE IN GOOD SPIRITS. PATIENT IS IN RECLINER AND REQUEST TO GO TO BED. DENIES NEED TO GO TO THE BATHROOM. ASSISTED PATIENT WITH CHANGING HER CLOTHES. 1PA W/FWW TO THE BED. PATIENT'S LUNGS ARE CLEAR. NO NAUSEA. ABD IS SOFT AND BWOEL SOUNDS ARE ACTIVE. DRESSING ON RIGHT LOWER EXTREMITY IS C/D/I. PATIENT LAYING IN BED. REPORTS BEING COMFORTABLE. CALL LIGHT IN HAND. REQUEST LIGHTS TO BE TURNED OUT.
--- NOTE | 2017-08-18 21:39 | NUR ---
CHARGE NURSE ROUNDS, UP IN CHAIR, CONTINUES ON SWING BED, NO REQUESTS,
--- NOTE | 2017-08-18 22:45 | NUR ---
PATIENT RESTING IN BED. EYES CLOSED. RR 18. CALL LIGHT IN HAND.
--- NOTE | 2017-08-19 00:30 | NUR ---
PATIENT LAYING IN BED. SHE APPEARED TO BE SLEEPING BUT OPEN HER EYES TO THE RN'S VOICE. PATIENT DENIED ANY NEEDS AT THIS TIME AND REPORTS BEING COMFORTABLE. CALL LIGHT IN HAND.
--- NOTE | 2017-08-19 01:22 | NUR ---
VITALS AND I&OS DONE. HELPED PT TO THE BATHROOM AND BACK WITH HER FWW. BED WAS SOILED WITH URINE. DID BED CHANGE. CHANGED ATTENDS. BEDSIDE TABLE AND CALL LIGHT WITHIN REACH.
--- NOTE | 2017-08-19 01:45 | NUR ---
PATIENT RESTING IN BED. EYES CLSOED. RR 18. CALL LIGHT IN HAND.
--- NOTE | 2017-08-19 04:20 | NUR ---
PATIENT SLEEPING SOUNDLY. RR 16. CALL LIGHT IN REACH.
--- NOTE | 2017-08-19 04:28 | NUR ---
PATIENT SLEPT MOST OF THE NIGHT. NO PAIN. INCONTINENT OF URINE AT TIMES. 1-2 PA W/FWW. NO IV ACCESS. CALL APPROPRIATELY.
--- NOTE | 2017-08-19 05:45 | NUR ---
patient sleeping soundly. RN woke the patient to ask if she needed to use the bathroom. patient denied the need.
--- NOTE | 2017-08-19 06:50 | NUR ---
MORNING MED GIVEN PER ORDER. PATIENT IS DROSWEY BUT IN A PLESANT MOOD. SHE REQUEST TO SLEEP A LITTLE LONGER AND DENIES TOILETING NEEDS. CALL LIGHT IN REACH.
--- NOTE | 2017-08-19 07:15 | NUR ---
REPORT RECEIVED FROM MARIA TERESA HERNANDEZ. PT ASLEEP. APPEARS COMFORTABLE.
--- NOTE | 2017-08-19 08:48 | NUR ---
PT UP IN CHAIR. AM MEDS ADMINISTERED. PT DENIES PAIN. ATE BREAKFAST. IS GOING TO BE UP WITH PT.
--- NOTE | 2017-08-19 09:30 | NUR ---
PT BACK FROM PHYSICAL THERAPY. PT STATES IT WENT WELL. SITTING UP IN CHAIR. PLEASANT AND ORIENTED. DENIES OTHER NEEDS AT THIS TIME.
--- NOTE | 2017-08-19 12:06 | NUR ---
PT UP IN CHAIR. GIVEN CLOTH TO WASH FACE AND COMB FOR HAIR. PERFORMED INDEPENDENTLY. LUNCH ORDERED. PT DENIES OTHER NEEDS AT THIS TIME. WATER REFILLED. CALL LIGHT IN REACH.
--- NOTE | 2017-08-19 14:08 | NUR ---
ALEYVN ON LEFT ALVES CHANGED 2/ PER DRESSING. WILL BE CHANGED AGAIN 08/20 PER ORDER. DRESSING IS CURRENTLY CDI
--- NOTE | 2017-08-19 15:49 | NUR ---
PT SITTING UP IN CHAIR. APPEARS COMFORTABLE. DENIES ANY NEEDS AT THIS TIME.
--- NOTE | 2017-08-19 17:07 | NUR ---
PT SITTING UP IN CHAIR EATING DINNER. PT IS PLEASANT AND ORIENTED. INSULIN OBSERVED BY MARIA TERESA ANG AND MARIA TERESA BONE. PT DENIES OTHER NEEDS AT THIS TIME.
--- NOTE | 2017-08-19 17:57 | NUR ---
PT UP WITH PHYSICAL THERAPY X1. TOLERATED WELL. 1-2 W/ FWW TO BATHROOM AND TO BED/CHAIR. NO INCONTINENCE TODAY. PT ALERT AND ORIENTED X4. UP IN CHAIR MOST OF DAY. ALLEVYN ON LEFT ALVES DUE TO BE CHANGED 08/20, WAS CDI ALL DAY. PLAN TO DC TO [facility] FRIDAY 07/21. DRESSING ON COCCYX INTACT.
--- NOTE | 2017-08-19 19:05 | NUR ---
SHIFT REPORT RECIEVED AT BEDSIDE. PATIENT APPEARS TO BE SLEEPING. RR17. CALL LIGHT IN REACH.
--- NOTE | 2017-08-19 21:00 | NUR ---
PATIENT APPEARS TO BE SLEEPING SOUNDLY. RR 17. CALL LIGHT IN REACH.
--- NOTE | 2017-08-19 22:00 | NUR ---
PATIENT WAS SLEEPING SOUNDLY. AND WAS DROWSY WHILE RN PERFORMED HER ASSESSMENT. AFTER SEVERAL MINS SHE BECAME ALERT ENOUGH TO SWALLOW MEDS SAFELY AND REQUESTED ASSISTANCE TO THE BATHROOM. RN ASSISTED HER, 1PA W/FWW. PATIENT AMBULATED VERY WELL. PATIENT HAD A LARGE AMOUNT OF OUTPUT THAT DID NOT MAKE IT IN THE HAT FOR MEASURE. DRESSING ON COCCYX AREA IS SOILED. ALYVEN APPLIED. WHEN OLD DRESSING WAS REMOVED A NEW AREA ON THE L BUTTOCK OPENED UP AND BLED. THIS AREA WAS THEN COVERED BY GAUZE AND AN OBSITE. WILL RE-DRESS IN THE MORNING OR NEXT TIME PATIENT IS OUT OF BED. ATTENDS WERE SOILED, NEW ONES APPLIED. PATIENT BACK TO BED. LOTION APPLIED TO PATIENT'S BACK, LEGS AND ARMS. DRESSING ON LEFT ALVES APPEARS C/D/I. PATIENT RESTING IN BED, REPORTS BEING COMFORTABLE. CALL LIGHT IN REACH.
--- NOTE | 2017-08-20 00:01 | NUR ---
PATIENT RESTING IN BED. APPEARS TO BE SLEEPING. RR 17. CALL LIGHT IN REACH.
--- NOTE | 2017-08-20 01:38 | NUR ---
PATIENT RESTING. EYES CLOSED. RR18. CALL LIGHT IN REACH.
--- NOTE | 2017-08-20 03:32 | NUR ---
PATIENT RESTING IN BED. APPEARS TO BE SLEEPING. RR 18. OCCATIONAL COUGHING NOTED. CALL LIGHT IN REACH.
--- NOTE | 2017-08-20 03:53 | NUR ---
PATIENT SLEEPING SOUNDLY. RR18. ATTEMPTED TO WAKE THE PATIENT TO ASSESS TOILETING NEEDS. PATIENT WAS DROSWEY BUT DENIED NEEDS. CALL LIGHT IN REACH.
--- NOTE | 2017-08-20 05:15 | NUR ---
PATIENT CALLED OUT FOR ASSISTANCE WITH USING THE BATHROOM. PATIENT HAD BEEN INCONTINENT OF A LARGE AMOUNT OF URINE. PATIENT UP TO THE BATHROOM, 1PA W/FWW. LINENS CHANGED. PATIENT WENT TO THE BATHROOM. ALYVENS CHANGED ON HER COCCYX AND LEFT BUTTOCK. FRESH ATTENDS AND THE PATIENT'S PERSONAL CLOTHES PROVIDED. FELICIA TOLEDO ASSITED THE PATIENT WITH HER CLOTHES AND BRUSHING HER HAIR. JUICE PROVIDED PER PATIENT REQUEST. SHE IS NOW SITTING IN THE RECLINER WATCHING TV. CALL LIGHT WITHIN REACH. NO OTHER NEEDS AT THIS TIME.
--- NOTE | 2017-08-20 05:48 | NUR ---
PATIENT SLEPT SOUNDLY THROUGHOUT THE NIGHT. DENIED PAIN. INCONTINENT X1. CALLED APPROPRIATELY. RED AREA ON COCCXY AND OPEN SKIN ON LEFT BUTTOCK ARE COVERED WITH ALYVENS. 1 PA W/FWW. PATIENT UP IN RECLINER THIS MORNING, DRESSED AND MORNING CARE DONE. PATIENT IS IN GOOD SPIRITS.
--- NOTE | 2017-08-20 06:17 | NUR ---
morning meds given per order. patinet resting in recliner watching tv. denies any needs. personal items within reach. call light in reach.
--- NOTE | 2017-08-20 07:19 | NUR ---
REPORT RECEIVED FROM MARIA TERESA HERNANDEZ. PT SITTING UP IN CHAIR. ALREADY DRESSED. APPEARS COMFORTABLE AND DENIES ANY NEEDS.
--- NOTE | 2017-08-20 07:52 | NUR ---
PATIENT WAS UP, WAITING FOR BREAKFAST, AM CARE DONE.
--- NOTE | 2017-08-20 08:48 | NUR ---
PATIENT DID PHYSICAL THERAPY AND THEN ATE HER BREAKFAST.
--- NOTE | 2017-08-20 09:57 | NUR ---
AM MEDS ADMINISTERED PER ORDER. PT IS SITTING UP IN CHAIR COLORING. REPORTS THEY WORKED WITH PHYSICAL THERAPY THIS MORNING. PT IS PLEASANT AND ORIENTED. DENIES ANY OTHER NEEDS AT THIS TIME. 3 UNITS INSULIN WITNESSED BY MARIA TERESA ANG AND MARIA TERESA Bowser
--- NOTE | 2017-08-20 10:44 | NUR ---
WOUND CARE DONE. ALLEVYN ON LEFT ALVES REPLACED. PT TOLERATED WELL.
--- NOTE | 2017-08-20 10:45 | NUR ---
STUDENT RN CHANGED DRESSING ON PT'S LEFT ALVES. PT TOLERATED WELL. SPRAYED WOUND PICKLE SORTER AND SKIN PROTECTANT IN PROPER LOCATIONS. ALLYVEN APPLIED AND DATED. NEXT DRESSING CHANGE DUE \ PER THE 3 DAY ORDER.
--- NOTE | 2017-08-20 11:46 | NUR ---
AFTERNOON MEDS ADMINISTERED PER ORDER. PT SITTING UP IN CHAIR ALL DAY. WATER CUP REFILLED. 3 UNITS INSULIN CHECKED BY MARIA TERESA ANG AND MARIA TERESA GEE.
--- NOTE | 2017-08-20 12:12 | NUR ---
PT SITTING UP IN CHAIR. FINISHED LUNCH. NO NEEDS AT THIS TIME. HAS BEEN CALLING APPROPRIATELY ALL DAY.
--- NOTE | 2017-08-20 13:54 | NUR ---
PT SITTING UP IN CHAIR ON PHONE.
--- NOTE | 2017-08-20 14:49 | NUR ---
PT SITTING UP IN CHAIR WATCHING TV. DIETARY IN TAKING HER ORDER. PT DENIES CONCERNS.
--- NOTE | 2017-08-20 15:16 | NUR ---
PT UP TO BATHROOM 1P HEAVY ASSIST WITH FWW. PT BACK TO CHAIR. DENIES OTHER NEEDS AT THIS TIME.
[2017-08-20] MEDS ORDERED: LISINOPRIL20 MG PO (16:57)
--- NOTE | 2017-08-20 17:18 | NUR ---
PM MEDS ADMINISTERED. 1 UNIT INSULIN WITNESSED BY MARIA TERESA ANG AND MARIA TERESA GEE. PT SITTING UP IN CHAIR EATING DINNER. PT IS COMFORTABLE AND DENIES ANY OTHER NEEDS AT THIS TIME.
--- NOTE | 2017-08-20 18:23 | NUR ---
PT UP WITH PHYSICAL THERAPY X1. SAT UP IN CHAIR MOST OF DAY. ALLEVYN ON LEFT ALVES CHANGED PER ORDER. SMALL AMOUNT OF DRAINAGE. DRESSING REINFORCED WITH TAPE DUE TO DR DENT EXAMINING. PT IS PLEASANT AND ALERT. 1-2 PERSON ASSIST WITH FWW. PLAN TO DC TO [facility] TOMORROW. WILL NEED HOME HEALTH CONSULT AFTER DC.
--- NOTE | 2017-08-20 19:05 | NUR ---
SHIFT REPORT RECIEVED. PATIENT IN RECLINER WATCHING TV. DENIES NEEDS AT THIS TIME. CALL LIGHT IN REACH.
--- NOTE | 2017-08-20 19:59 | NUR ---
ASSISTED PATIENT TO THE BATHROOM AND BACK TO THE RECLINER. 1PA W/FWW. PATIENT TOLERATED WELL. NO OTHER NEEDS AT THIS TIME. WOULD LIKE TO GO TO BED SOON. CALL LIGHT IN REACH.
--- NOTE | 2017-08-20 20:30 | NUR ---
EVENING MEDS GIVEN. PATIENT'S CLOTHES CHANGED TO GOWN FOR SLEEP. LARGE ATTENDS IN PLACE. LOTION APPLIED PER PATIENT REQUEST. PATIENT REPORTS BEING COMFORTABLE. NO OTHER NEEDS AT THIS TIME. CALL LIGHT IN REACH.
--- NOTE | 2017-08-20 22:41 | NUR ---
ASSISTED PATIENT FROM BATHROOM TO BED WITH WALKER. DENIES OF NEED AT THE MOMENT. CALL WITHIN REACH. ICE WATER REFILLED.
--- NOTE | 2017-08-20 22:50 | NUR ---
PATIENT RESTING QUIETLY IN BED. APPEARS TO BE SLEEPING. RR 18. CALL LIGHT IN REACH.
--- NOTE | 2017-08-21 02:17 | NUR ---
PATIENT APPEARS TO BE SLEEPING SOUNDLY. RR 16.
--- NOTE | 2017-08-21 03:30 | NUR ---
PATIENT CALLED FOR ASSIST TO BATHROOM. SHE HAD BEEN INCONTINENT OF URINE. ATTENDS AND GOWN CHANGED. NEW LINENS ON BED. DRESSING ON COCCYX AND LEFT BUTTOCK CHANGED. PATIENT BACK TO BED. CALL LIGHT IN HAND.
--- NOTE | 2017-08-21 04:37 | NUR ---
PATIENT SLEPT WELL DURING THE NIGHT. INCONTINENT OF URINE X1. CALLED APPROPRIATELY. NO PAIN. GOOD APPETITE. DRESSING ON LEFT ALVES IS INTACT, SMALL AMOUNT OF DRAINAGE NOTED. CHANGED YESTERDAY. ALYVEN DRESSINGS X2, COCCYX AND LEFT BUTTOCK. 1-2PA W/FWW. PLAN TO DC TODAY.
--- NOTE | 2017-08-21 05:00 | NUR ---
PATIENT RESTING. EYES CLOSED. RR17.
--- NOTE | 2017-08-21 06:39 | NUR ---
morning meds given per order. patient up and dressed for the day with assist from brady montoya. patient to the recliner and provided with her personal items and fresh drinks.
--- NOTE | 2017-08-21 07:42 | NUR ---
PATIENT SITTING UP IN CHAIR RESTIN HEAD ON TABLE. DIETARY BROUGHT BREAKFAST. STUDENT NRSE IN ROOM. BLOOD SUGAR DONE. ROOM TIDIED. FRESH WATER- CALL LIGHT IN REACH. NO OTHER NEEDS.
--- NOTE | 2017-08-21 09:00 | NUR ---
PATIENT UP IN RECLINER, STATES " I WANNA GET OUT OF HERE PLEASE" DISCUSSED WITH PATIENT NEED FOR NURSE FROM [facility] NEEDS TO DO AN EVALUATION BEFORE SHE CAN DISCHARGE. PATIENT NOW COLORING.
--- NOTE | 2017-08-21 09:18 | NUR ---
PT SITTING IN CHAIR, QUIETLY GAZING OF INTO SPACE. SHE WELCOMED ME INTO HER RM WHEN SHE HEARD MY VOICE. ALWAYS PLEASANT, MENTIONED THAT SHE MAY BE DC'D TODAY. SHE SEEMED PLEASED-THANKED ME FOR COMING TO SEE HER. BLESSINGS TO PT
--- NOTE | 2017-08-21 11:41 | NUR ---
CALLED [facility] AND SPOKE WITH NAIMA. SHE STATES A NURSE WILL BE HERE AFTER 1PM TO EVALUATE PATIENT ON RETURNING TO FACILITY.
--- NOTE | 2017-08-21 12:38 | NUR ---
PATIENT RELAXING IN CHAIR. WASHCLOTH GIVEN FOR FACE AND HANDS. SWAB FOR ORAL CARE. FELICIA BETANCUR USED PATIENTS SHAVER FOR CHIN AND LIP HAIR REMOVAL. PATIENT STATED " WAITING IS THE WORST" SHE IS READY TO BE DISCHARGED. FRESH ICE IS WATER CUP. CALL LIGHT IN REACH. NO OTHER NEEDS AT THIS TIME.
--- NOTE | 2017-08-21 14:25 | NUR ---
SPOKE WITH NAIMA AND MARIA ISABEL RN FROM [facility] IN ROOM. THEY STATE PATIENT CAN RETURN TO FACILITY TOMORROW. UPDATED DR DENT, HE THEN SPOKE WITH THEM REGARDING THAT DISCHARGE ORDERS WERE ALREADY WRITTEN, AND PATIENT CAN RETURN TODAY. THEY STATED THEY WERE WANTING TO DO PAPERWORK FIRST, WE AGREED TO KEEP PATIENT UNTIL AROUND 4PM BEFORE DISCHARGE.
--- NOTE | 2017-08-21 14:47 | NUR ---
MARIA TERESA AGUIRRE ASKED THIS COMPUTER AIDED DESIGN TECHNICIAN TO LISTEN FOR PATIENTS BATHROOM CALL LIGHT. PATIENT USED CALL LIGHT CORRECTLY WHEN FINISHED. 1 PERSON ASSIST BACK TO CHAIR. PATIENT TOLD THIS COMPUTER AIDED DESIGN TECHNICIAN SHE IS FEELING "DOWN IN THE DUMPS" SHE WAS SURE SHE WAS BEING DISCHARGED TODAY, BUT IT NOW LOOKS THOUGH IT WONT BE UNTIL TOMORROW. CALL LIGHT IN REACH. NO OTHER NEEDS AT THIS TIME.
--- NOTE | 2017-08-21 15:05 | NUR ---
CLINICALS, ORDER FAXED TO [facility] DEPARTMENT. SPOKE WITH MARCOS MACHINE TENDER AND ELOISE RECORD PRESS OPERATOR.
--- NOTE | 2017-08-21 15:52 | NUR ---
DISCUSSED DISCHARGE INSTRUCTIONS WITH NURSE POST AT [facility]. DISCUSSED WOUND CARE TO LOWER ALVES DSG CHANGED YESTERDAY 08/20. PATIENT VS STABLE. LEFT MESSAGE INFORMING SISTER THAT PATIENT WAS BEING DISCHARGED TO [facility]. PROVIDED PATIENT WITH CARE RIDE. PATIENT LEFT WITH EYE DROPOS AND OTHER HOME MEDICAITONS. DENTURES IN MOUTH. BELONGINGS IN BAG.
--- NOTE | 2017-09-15 10:30 | NUR ---
RECEIVED A CALL FROM NAIMA AT [facility]. SHE STATES PATIENT IS NOT IMPROVING WITH HOME HEALTH PT. SHE STATES THE PHYSICAL THERAPIST THINKS PATIENT WOULD BENEFIT MORE FROM DAILY PT AT SNF. SHE STATES SHE HAS BEEN TALKING WITH [facility] AND THEY WILL ACCEPT PATIENT IF SHE HAS ORDERS. SHE STATES PATIENTS PCP DR MORENO IS OUT OF TOWN AND CANNOT WRITE THESE ORDERS. DISCUSSED THAT I WILL SPEAK WITH DR DENT AND JOSE. SPOKE WITH CARLIE BEHAVIORAL ANALYST FOR [facility]. SHE STATES THEY WILL ACCEPT PATIENT WITH ORDERS TODAY. SPOKE WITH DR DENT. HE AGREES TO COVER ORDERS FOR DR MORENO. HE WILL REVIEW THE PATIENTS CHARTS.
--- NOTE | 2017-09-15 12:15 | NUR ---
RECEIVED [facility] IDT CHART NOTES FOR DR DENT.
--- NOTE | 2017-09-15 12:45 | NUR ---
ORDERS, PASSR, HOME HEALTH NOTES FAXED TO [facility]. FAX CONFIRMATION RECEIVED. SPOKE WITH ADMITTING COORDINATER WHO HAS RECEIVED FAX. SHE WILL CONTACT [facility]IMA [facility] DIRECTLY REGARDING PATIENT TRANSFER TO SNF.
== END 2017-08-21 15:57 | disposition short-term general hospital (02) | DRG 194 ==
LOC: MS 13:12
PROVIDERS: ADMIT Internal Medicine
DX: J11.00 Influenza due to unidentified influenza virus with unspecified type of pneumonia (principal); F03.91 Unspecified dementia, unspecified severity, with behavioral disturbance; J69.0 Pneumonitis due to inhalation of food and vomit; I10 Essential (primary) hypertension; E78.5 Hyperlipidemia, unspecified; E03.9 Hypothyroidism, unspecified; E11.9 Type 2 diabetes mellitus without complications; Z79.84 Long term (current) use of oral hypoglycemic drugs; S80.12XD Contusion of left lower leg, subsequent encounter; X58.XXXD Exposure to other specified factors, subsequent encounter; K21.9 Gastro-esophageal reflux disease without esophagitis; Z88.0 Allergy status to penicillin
CPT/HCPCS: 36415; 80048; 83735; 85025; 94668; 97110; 97112; 97116; 97163; 97166; 97530; 97535; J1650

== ENCOUNTER 2018-09-11 11:20 | Emergency (ER) | payer MEDICARE, OTHER ==
[~2018-09-11] VITALS: Ht 170.2 cm; Wt 105.7 kg
[~2018-09-11 11:20] MED LIST changes: +A THRU Z ADVAN1 EACH PO; +ATORVASTATIN CA40 MG PO; -GABAPENTIN300 MG PO; +GABAPENTIN800 MG PO; +HALLS3.2 MG MM; +IPRAT-ALBUT 0.5-3 ML INH; +LISINOPRIL-HCT1 EAC1 PO; +LISINOPRIL20 MG PO; +NOVOLIN N100 UNIT/1 SUB-Q; +NOVOLOG100 UNIT/2 SUB-Q; +ROBAFEN DM COU118 ML PO; +TRESIBA FL100 UNIT/1 SUB-Q; +VITAMIN B125000 MCG PO
--- OUTSIDE RECORDS SUMMARY | 2018-09-11 11:24 | XMS ---
PreManage Notification: VEDA GUDINO Security Popped Corn Oven Attendant Events No recent Security Events currently on file CRITERIA MET - [place] [facility] [place] PERLA MORENO Internal Medicine 04/23/2018-Current PHONE: Unknown Panchito Fitch Firesetter/Double Cut Sawyer 08/20/2013-Current PHONE: [phone] Panchito Fitch Primary Care 08/20/2013-Current PHONE: [phone] [facility] Case or Video Library Assistant Current [facility] PHONE: [phone] Krish Zayas Primary Care Brenna MARIE PHONE: Unknown ormichelle Case or Video Library Assistant Current PHONE: Unknown Dorota [place] Bobby Current Orthopedic Surgery \T\ Fracture Clinic PHONE: Unknown Other Current PHONE: Unknown Komal has no Care Guidelines for this patient. Care History Medical/Surgical 04/23/2018 [facility] - Patient is currently established with [facility]. If patient is seen in the ED during business hours. Please contact CHWs at [facility]. Care Recommendation: This patient has had 5 or more Emergency Department visits in the last 12 months.\T\nbsp; Patient requires education on the scope and purpose of the ED as an acute care provider not a Primary Care Provider and should not be utilized for chronic conditions.\T\nbsp; These are guidelines and the provider should exercise clinical judgment when providing care. 08/17/2017 [facility] Care Recommendation: This patient has had 5 or more Emergency Department visits in the last 12 months. Patient requires education on the scope and purpose of the ED as an acute care provider not a Primary Care Provider and should not be utilized for chronic conditions. If patient returns to ED please contact Community Health WorkerRin at [phone]. These are guidelines and the provider should exercise clinical judgment when providing care. E.D. VISIT COUNT (12 MO.) 2 [facility]. TOTAL 2 NOTE: Visits indicate total known visits. ED/UCC VISIT TRACKING (12 MO.) 09/11/2018 11:21 [facility] [place] TYPE: Emergency COMPLAINT: - COLD SYMPTOMS 04/22/2018 08:34 [facility] [place] TYPE: Emergency COMPLAINT: - DECREASED LOC INPATIENT VISIT TRACKING (12 MO.) 04/22/2018 10:50 [facility] [place] TYPE: Medical Surgical COMPLAINT: - ACUTE KIDNEY INJURY, UTI DIAGNOSES: - Blindness, one eye, unspecified eye - Retention of urine, unspecified - Essential (primary) hypertension - Personal history of nicotine dependence - Unspecified dementia without behavioral disturbance - Type 2 diabetes mellitus without complications - Primary osteoarthritis, unspecified site - Hyperlipidemia, unspecified - Acute kidney failure, unspecified - Other specified bacterial agents as the cause of diseases classified elsewhere - Urinary tract infection, site not specified - Hypotension, unspecified - Gastro-esophageal reflux disease without esophagitis [email or web address]
[2018-09-11] MEDS ORDERED: TAMIFLU75 MG PO (13:11)
[2018-09-11] MEDS ORDERED: TESSALON PERLE100 MG PO (13:11)
== END 2018-09-11 13:42 | disposition home or self-care (01) ==
LOC: ED 11:20
DX: J10.1 Influenza due to other identified influenza virus with other respiratory manifestations (principal); K21.9 Gastro-esophageal reflux disease without esophagitis; F03.90 Unspecified dementia, unspecified severity, without behavioral disturbance, psychotic disturbance, mood disturbance, and anxiety; E78.5 Hyperlipidemia, unspecified; I11.0 Hypertensive heart disease with heart failure; I50.9 Heart failure, unspecified; E11.9 Type 2 diabetes mellitus without complications; Z86.73 Personal history of transient ischemic attack (TIA), and cerebral infarction without residual deficits; Z87.891 Personal history of nicotine dependence; Z88.0 Allergy status to penicillin; Z91.038 Other insect allergy status; Z88.4 Allergy status to anesthetic agent; Z79.82 Long term (current) use of aspirin; Z79.4 Long term (current) use of insulin; Z79.899 Other long term (current) drug therapy
CPT/HCPCS: 71045; 80053; 81001; 85025; 87502; 94640; 96374; 99285-25; J2930

== ENCOUNTER 2018-09-21 10:41 | Emergency (ER) | payer MEDICARE, OTHER ==
[~2018-09-21] VITALS: Ht 170.2 cm; Wt 105.7 kg
[~2018-09-21 10:41] MED LIST changes: +TAMIFLU75 MG PO; +TESSALON PERLE100 MG PO
--- OUTSIDE RECORDS SUMMARY | 2018-09-21 10:44 | XMS ---
PreManage Notification: VEDA GUDINO Security Podiatrist Events No recent Security Events currently on file CRITERIA MET - Group Notification - [facility] - Has Care Guidelines - [facility] - 2 Visits in 30 Days CARE PROVIDERS PERLA MORENO Internal Medicine 04/23/2018-Current PHONE: Unknown Panchito Fitch Aircraft Seat Upholsterer/Cardiovascular Operating Room Nurse 08/20/2013-Current PHONE: [phone] Hever Nixno [facility] 09/12/2018-Current PHONE: Unknown Panchito Fitch Primary Care 08/20/2013-Current PHONE: [phone] [facility] M[facility] ALEGRIA Case or Hair Specialist Current HEALTH AND HOSPICE PHONE: [phone] Krish Zayas [facility] Brenna MARIE PHONE: Unknown ormichelle Case or Hair Specialist Current PHONE: Unknown Dorota Rosales Current Orthopedic Surgery \T\ Fracture Clinic PHONE: Unknown Other Current PHONE: Unknown Komal has no Care Guidelines for this patient. Care History Medical/Surgical 04/23/2018 [facility] - Patient is currently established with [facility]. If patient is seen in the ED during business hours. Please contact CHWs at [facility]. Care Recommendation: This patient has had 5 or more Emergency Department visits in the last 12 months.\T\nbsp; Patient requires education on the scope and purpose of the ED as an acute care provider not a Primary Care Provider and should not be utilized for chronic conditions.\T\nbsp; These are guidelines and the provider should exercise clinical judgment when providing care. 08/17/2017 [facility] Care Recommendation: This patient has had 5 or more Emergency Department visits in the last 12 months. Patient requires education on the scope and purpose of the ED as an acute care provider not a Primary Care Provider and should not be utilized for chronic conditions. If patient returns to ED please contact Community Health WorkerRin at [phone]. These are guidelines and the provider should exercise clinical judgment when providing care. E.D. VISIT COUNT (12 MO.) 3 [facility]. TOTAL 3 NOTE: Visits indicate total known visits. ED/UCC VISIT TRACKING (12 MO.) 09/21/2018 10:42 [facility] [place] TYPE: Emergency COMPLAINT: - FLU SYMPTOMS/SOB 09/11/2018 11:21 [facility] [place] TYPE: Emergency COMPLAINT: - COLD SYMPTOMS DIAGNOSES: - Influenza due to other identified influenza virus with other respiratory manifestations - Type 2 diabetes mellitus without complications - Allergy status to penicillin - Other insect allergy status - intermission coordinator (current) use of aspirin - intermission coordinator (current) use of insulin - Hypertensive heart disease with heart failure - Unspecified dementia without behavioral disturbance - Personal history of transient ischemic attack (TIA), and cerebral infarction without residual deficits - Personal history of nicotine dependence - Other fpc (current) drug therapy - Cough - Heart failure, unspecified - Allergy status to anesthetic agent status - Hyperlipidemia, unspecified - Gastro-esophageal reflux disease without esophagitis 04/22/2018 08:34 [facility] [place] TYPE: Emergency [...] unspecified - Gastro-esophageal reflux disease without esophagitis [id number]
== END 2018-09-21 13:21 | disposition home or self-care (01) ==
LOC: ED 10:41
DX: J11.1 Influenza due to unidentified influenza virus with other respiratory manifestations (principal); K21.9 Gastro-esophageal reflux disease without esophagitis; F03.90 Unspecified dementia, unspecified severity, without behavioral disturbance, psychotic disturbance, mood disturbance, and anxiety; E78.5 Hyperlipidemia, unspecified; E11.9 Type 2 diabetes mellitus without complications; I11.0 Hypertensive heart disease with heart failure; I50.9 Heart failure, unspecified; Z86.73 Personal history of transient ischemic attack (TIA), and cerebral infarction without residual deficits; Z87.891 Personal history of nicotine dependence; Z88.0 Allergy status to penicillin; Z91.038 Other insect allergy status; Z88.4 Allergy status to anesthetic agent; Z88.6 Allergy status to analgesic agent; Z88.8 Allergy status to other drugs, medicaments and biological substances; Z79.899 Other long term (current) drug therapy
CPT/HCPCS: 71045; 80053; 85025; 99285-25

== ENCOUNTER 2019-01-02 08:14 | Emergency (ER) | payer MEDICARE, OTHER ==
[~2019-01-02] VITALS: Ht 170.2 cm; Wt 105.7 kg
--- OUTSIDE RECORDS SUMMARY | 2019-01-02 08:18 | XMS ---
PreManage Notification: VEDA GUDINO Security Cross Cut Sawyer Events No recent Security Events currently on file CRITERIA MET - Group Notification - [facility] CARE PROVIDERS PERLA MORENO Internal Medicine 04/23/2018-Current PHONE: Unknown Panchito Fitch Measurement Technician/Field Technical Specialist 08/20/2013-Current PHONE: [phone] Hever Nixon [facility] 09/12/2018-Current PHONE: Unknown Panchito Fitch Primary Care 08/20/2013-Current PHONE: [phone] [facility] Case or Sign Fabricator Current HEALTH AND HOSPICE PHONE: [phone] Krish Zayas Primary Care Brenna MARIE PHONE: Unknown ormichelle Case or Sign Fabricator Current PHONE: Unknown Dorota Rosales Current Orthopedic Surgery \T\ Fracture Clinic PHONE: Unknown Other Current PHONE: Unknown Komal has no Care Guidelines for this patient. Care History Medical/Surgical 04/23/2018 [facility] - Patient is currently established with [facility]. If patient is seen in the ED during business hours. Please contact CHWs at [facility]. Care Recommendation: This patient has had 5 or more Emergency Department visits in the last 12 months.\T\nbsp; Patient requires education on the scope and purpose of the ED as an acute care provider not a Primary Care Provider and should not be utilized for chronic conditions.\T\nbsp; These are guidelines and the provider should exercise clinical judgment when providing care. 08/17/2017 [facility] Care Recommendation: This patient has had 5 or more Emergency Department visits in the last 12 months. Patient requires education on the scope and purpose of the ED as an acute care provider not a Primary Care Provider and should not be utilized for chronic conditions. If patient returns to ED please contact Community Health WorkerRin at [phone]. These are guidelines and the provider should exercise clinical judgment when providing care. E.D. VISIT COUNT (12 MO.) 4 [facility]. TOTAL 4 NOTE: Visits indicate total known visits. ED/UCC VISIT TRACKING (12 MO.) 01/02/2019 08:15 [facility] [place] TYPE: Emergency COMPLAINT: - URINATION PROBLEMS 09/21/2018 10:42 [facility] [place] TYPE: Emergency COMPLAINT: - FLU SYMPTOMS/SOB DIAGNOSES: - Allergy status to penicillin - Unspecified dementia without behavioral disturbance - Other insect allergy status - Hyperlipidemia, unspecified - Type 2 diabetes mellitus without complications - Allergy status to analgesic agent status - Influenza due to unidentified influenza virus with other respiratory manifestations - Personal history of transient ischemic attack (TIA), and cerebral infarction without residual deficits - Shortness of breath - Allergy status to other drugs, medicaments and biological substances status - Other auto transmission technician (current) drug therapy - Gastro-esophageal reflux disease without esophagitis - Allergy status to anesthetic agent status - Heart failure, unspecified - Hypertensive heart disease with heart failure - Personal history of nicotine dependence 09/11/2018 11:21 [facility] [place] TYPE: Emergency COMPLAINT: - COLD SYMPTOMS DIAGNOSES: - Influenza due to other identified influenza virus with other respiratory manifestations - Type 2 diabetes mellitus without complications - Allergy status to penicillin - Other insect allergy status - nursing home (current) use of aspirin - nursing home (current) use of insulin - Hypertensive heart disease with heart failure - Unspecified dementia without behavioral disturbance - Personal history of transient ischemic attack (TIA), and cerebral infarction without residual deficits - Personal history of nicotine dependence - Other auto transmission technician (current) drug therapy - Cough - Heart [...] unspecified - Gastro-esophageal reflux disease without esophagitis [email or web address]
== END 2019-01-02 10:34 | disposition home or self-care (01) ==
LOC: ED 08:14
DX: E86.0 Dehydration (principal); K21.9 Gastro-esophageal reflux disease without esophagitis; F03.90 Unspecified dementia, unspecified severity, without behavioral disturbance, psychotic disturbance, mood disturbance, and anxiety; I11.0 Hypertensive heart disease with heart failure; I50.9 Heart failure, unspecified; E78.5 Hyperlipidemia, unspecified; E11.9 Type 2 diabetes mellitus without complications; Z87.891 Personal history of nicotine dependence; Z88.0 Allergy status to penicillin; Z91.030 Bee allergy status; Z79.899 Other long term (current) drug therapy; Z79.82 Long term (current) use of aspirin; Z79.4 Long term (current) use of insulin
CPT/HCPCS: 51702; 80053; 81001; 85025; 99283-25